=== PATIENT | male | born 1970 | race Caucasian/White ===

== ENCOUNTER 2017-03-17 16:31 | Emergency (ER) | payer BC ==
[~2017-03-17] VITALS: Ht 175.3 cm; Wt 90.9 kg
[2017-03-17 16:34] VITALS: TEMP 36.8; Ht 175.3 cm; Wt 90.9 kg
[2017-03-17] MEDS ORDERED: FOLI1TAB7 PO (16:56)
[2017-03-17] MEDS ORDERED: METH2.5T PO (16:56)
[2017-03-17] MEDS ORDERED: PRED-301 PO (16:58)
[2017-03-17] MEDS ORDERED: PRLSR20 PO (16:58)
[2017-03-17] MEDS ORDERED: SODIUM CHLORIDE 0.9% 1000ML 1,000 ML IV STA (17:04)
[2017-03-17] MEDS ORDERED: MONT1TAB3 PO (17:27)
--- NOTE | 2017-03-17 17:27 | EMERGENCY ROOM VISIT NOTE ---
History First contact with patient: 16:54 Chief Complaint: ILLNESS Stated Complaint: BITE ON ARM, SWELLING, RED/PAINFUL, POSS WC History of Present Illness The patient is a 46 year old male on methotrexate and prednisone for sarcoidosis who presents to the Emergency Room with complaints of pain, erythema and swelling over this right elbow since a bug bite which occurred on Wednesday. He does have hot flushes but this is not unusual for him due to his sarcoid. He also has intermittent chest pains which last for a few minutes while resting however these are not acute and he has odd chest pains such as this due to his sarcoid chronically. Left side of sternum, ache more than a pain, no radiation, no worse on inspiration. no associated diaphoresis, nausea or shortness of breath. Review of Systems See HPI for pertinent positives & negatives. A total of 10 systems reviewed and were otherwise negative. Past Medical/Surgical History Medical Problems: (1) Asthma (2) Chronic GERD (3) Sarcoidosis Surgical Problems: (1) Hernia (2) S/P vasectomy Family History Diabetes HTN Cancer Social History Smoking Status: Never Smoker Smokeless Tobacco Use: Yes Alcohol Use: occasionally Drug Use: none Marital Status: Housing Status: lives with significant other Occupation Status: employed Current/Historical Medications Scheduled Calcium Carbonate-Cholecalcife (Caltrate 600+D), 1 TAB PO DAILY Celecoxib (CeleBREX), 1 CAP PO DAILY Folic Acid (Folvite), 2 MG PO DAILY Methotrexate (Methotrexate), 2.5 MG PO WK Montelukast Sodium (Singulair), 10 MG PO DAILY Omeprazole (Prilosec), 20 MG PO DAILY Prednisone (Prednisone), 2.5 MG PO 2XWK Psyllium (Metamucil), 1 CAP PO DAILY Tiotropium [place] Monohydrate (Spiriva Respimat), 2 PUFFS INH DAILY Allergies Coded Allergies: No Known Allergies (Unverified , 03/19/17) Physical Exam Vital Signs Date Time Temp Pulse Resp B/P (MAP) Pulse Ox O2 Delivery O2 Flow Rate FiO2 03/17/17 21:15 82 18 154/90 97 03/17/17 19:14 78 24 157/95 97 Room Air 03/17/17 18:14 80 18 158/90 98 Room Air 03/17/17 17:44 84 20 150/64 97 Room Air 03/17/17 17:33 83 03/17/17 16:34 36.8 90 18 158/83 97 Room Air Physical Exam VITAL SIGNS: were reviewed as above GENERAL: mild acute distress from pain SKIN: Warm dry and pink, superficial erythema and swelling surrounding scab consistent with a bug bite on right upper arm, no fluctuance of fluid filled cavity, elbow joint non painful on flexion and extension. HEAD: Normocephalic and atraumatic EYES: extraocular muscles intact, pupils equal and reactive to light OROPHARYNX: non erythematous, clear and moist NECK: no adenopathy LUNGS: Regular rate, no accessory muscle use, no respiratory distress, clear to auscultation, no accessory muscle use HEART: Regular rate and rhythm, heart sounds 1+2, no murmurs ABDOMEN: Soft and nontender, bowel sounds normal EXTREMITIES: Warm and well perfused, no calf tenderness/swelling, no pedal edema. NEUROLOGICALLY: Awake alert and oriented without focal deficit. No facial droop. MUSCULOSKELETAL: Good muscle tone. No evidence of trauma Medical Decision & Procedures ER Provider Diagnostic Interpretation: CHEST ONE VIEW PORTABLE CLINICAL HISTORY: Atypical chest pain COMPARISON STUDY: No previous studies for comparison. FINDINGS: The heart is mildly enlarged. There is elevation of the interstitium. This could be secondary to mild cardiogenic interstitial edema, and interstitial inflammatory process, or chronic interstitial lung disease. There is no lobar consolidation. There are no pleural effusions. There is mild elevation left hemidiaphragm.[ IMPRESSION: Cardiomegaly and age-indeterminate elevation of the interstitium. Clinical correlation in regards to congestive failure is recommended. Electronically signed by: Domingo Lauren M.D. 03/17/2017 5:34 PM Dictated Date/Time: 03/17/2017 5:32 PM Laboratory Results 03/17/17 17:45 Red Blood Count 5.28, Mean Corpuscular Volume 92.0, Mean Corpuscular Hemoglobin 31.8, Mean Corpuscular Hemoglobin Concent 34.6, Mean Platelet Volume 9.6, Neutrophils (%) (Auto) 81.4, Lymphocytes (%) (Auto) 7.3, Monocytes (%) (Auto) 9.4, Eosinophils (%) (Auto) 1.1, Basophils (%) (Auto) 0.4, Neutrophils # (Auto) 8.75, Lymphocytes # (Auto) 0.79, Monocytes # (Auto) 1.01, Eosinophils # (Auto) 0.12, Basophils # (Auto) 0.04 03/17/17 17:45 Test 03/17/17 17:45 03/17/17 17:48 03/17/17 19:46 White Blood Count 10.75 K/uL (4.8-10.8) Red Blood Count 5.28 M/uL (4.7-6.1) Hemoglobin 16.8 g/dL (14.0-18.0) Hematocrit 48.6 % (42-52) Mean Corpuscular Volume 92.0 fL (80-100) Mean Corpuscular Hemoglobin 31.8 pg (25-34) Mean Corpuscular Hemoglobin Concent 34.6 g/dl (32-36) Platelet Count 146 K/uL (130-400) Mean Platelet Volume 9.6 fL (7.4-10.4) Neutrophils (%) (Auto) 81.4 % Lymphocytes (%) (Auto) 7.3 % Monocytes (%) (Auto) 9.4 % Eosinophils (%) (Auto) 1.1 % Basophils (%) (Auto) 0.4 % Neutrophils # (Auto) 8.75 K/uL (1.4-6.5) Lymphocytes # (Auto) 0.79 K/uL (1.2-3.4) Monocytes # (Auto) 1.01 K/uL (0.11-0.59) Eosinophils # (Auto) 0.12 K/uL (0-0.5) Basophils # (Auto) 0.04 K/uL (0-0.2) RDW Standard Deviation 45.5 fL (36.4-46.3) RDW Coefficient of Variation 13.5 % (11.5-14.5) Immature Granulocyte % (Auto) 0.4 % Immature Granulocyte # (Auto) 0.04 K/uL (0.00-0.02) Anion Gap 6.0 mmol/L (3-11) Est Creatinine Clear Calc Drug Dose 91.5 ml/min Estimated GFR () 91.5 Estimated GFR (Non- 79.0 BUN/Creatinine Ratio 11.6 (10-20) Calcium Level 8.7 mg/dl (8.5-10.1) Total Bilirubin 0.8 mg/dl (0.2-1) Aspartate Amino Transf (AST/SGOT) 22 U/L (15-37) Alanine Aminotransferase (ALT/SGPT) 57 U/L (12-78) Alkaline Phosphatase 36 U/L (45-117) C-Reactive Protein 2.49 mg/dl (0-0.29) Total Protein 7.3 gm/dl (6.4-8.2) Albumin 4.0 gm/dl (3.4-5.0) Globulin 3.3 gm/dl (2.5-4.0) Albumin/Globulin Ratio 1.2 (0.9-2) Chemistry Specimen Hemolysis Bedside Troponin I < 0.030 ng/ml (0-0.045) Bedside Lactic Acid Venous 1.66 mmol/L (0.90-1.70) Medications Administered Medications (Trade) Dose Ordered Sig/Dejah Route Start Time Stop Time Status Last Admin Dose Admin Sodium Chloride 1,000 ml @ 999 mls/hr Q1H1M STAT IV 03/17/17 17:04 03/17/17 18:04 DC 03/17/17 17:47 999 MLS/HR Ceftriaxone Sodium (Rocephin Inj) 1 gm NOW STAT IV 03/17/17 17:29 03/17/17 17:30 DC 03/17/17 18:14 1 GM ECG Indication: chest pain Rate (beats per minute): 87 Rhythm: normal sinus Findings: no acute ischemic change Comparison ECG Date: no prior available ED Course 16:55 Complete history and physical performed 17:[address] Michael who separately performed history and physical 19:25 Reassessed patient - no chest pain. Discussed option for management and treatment - his main concern is trying to get back to work on Wednesday but he does not wish to be admitted. Therefore elected to get a second lactic acid to make sure it was coming down. 20:20 Reassessed patient and awaiting MTU to be set up so he can be discharged. No chest pain. Medical Decision Prior records reviewed and summarized as above. Triage Nursing notes reviewed. Additional history obtained from the patient The patient's history was concerning for swelling and redness of the skin. Differential diagnosis: Etiologies such as cellulitis, abscess, MRSA infection, DVT, necrotizing fasciitis, dermatitis, drug eruption, as well as others were entertained.. Physical examination: The physical examination was consistent with cellulitis ER treatment provided: Ceftriaxone 1g IV NSS 1L bolus On reassessment the patient felt about the same but was keen to be discharged Diagnostics interpreted by me: The labs revealed mildly elevated neutrophil count but normal WBC, elevated CRP 2.49, initially elevated lactic acid 2.3 which later decreased to 1.66. Imaging studies: CXR - correlation with his symptoms I suspect these are chronic interstitial changes related to his sarcoidosis as his clinical history is not consistent with that of heart failure. US doppler was negative for DVT This appears to be isolated cellulitis however he is immunosuppressed with the methotrexate and prednisone therefore opted for IV antibiotics over the next 2 days and reassess if it is improving and switch to orals if blood cultures are negative. By the evaluation outlined above emergent etiologies such as abscess, necrotizing fasciitis, DVT, as well as others were deemed relatively unlikely. The patient was informed about the findings as listed above. All questions were answered and he pleased with the treatment and management plan. Return instructions were outlined and the patient was discharged in stable condition. Blood pressure screening: elevated in the ER, likely situational. Discussed with patient and he will follow up with his primary care physician regarding this. Outpatient prescription management: Medical treatment unit - ceftriaxone 1g IV daily for 2 days starting 03/18/2017 Referral: The patient was referred back to his primary care physician for follow-up in 4 to 5 days for a recheck of the current condition and a recheck of his blood pressure. Impression Primary Impression: Cellulitis of arm, right Additional Impression: Immunosuppressed status Departure Information Dispostion Home / Self-Care Condition FAIR Referrals Gurinder Martin (PCP) Patient Instructions [facility] Additional Instructions CELLULITIS INSTRUCTIONS: You have been set up for the medical treatment unit to receive two further doses of IV antibiotics. Further treatment to be determined following this depending on clinical course and blood culture results. Acetaminophen(Tylenol) may be used for fever or pain. Use 1000mg every eight hours as needed. Avoid using more than 3000mg in a 24 hour period. This is available over the counter. Read all the package inserts or medication information paperwork provided. If you have any questions or concerns call your primary provider, pharmacist or the ER for assistance. Rest and drink plenty of fluids. Continue current medications. Return to the ER for severe pain, persistent fevers, spreading redness, or any worsening of your condition. Follow up with your primary physician within 4-5 days for a recheck of the current condition. Work Instructions Specific Date: 03/22/2017 Resident Tracking Resident Involvement: Resident Care Provided Care Provided: Adult ED Problem Qualifiers
[2017-03-17] MEDS ORDERED: CLB/200 PO (17:28)
[2017-03-17] MEDS ORDERED: PSYL0.524 PO (17:28)
[2017-03-17] MEDS ORDERED: CEFTRIAXONE SOD INJ 1 GM ADDVIAL IV STA (17:29)
[2017-03-17] MEDS ORDERED: CALC-354 PO (17:31)
--- NOTE | 2017-03-17 17:35 | DIAGNOSTIC IMAGING REPORT ---
CHEST ONE VIEW PORTABLE CLINICAL HISTORY: Atypical chest pain COMPARISON STUDY: No previous studies for comparison. FINDINGS: The heart is mildly enlarged. There is elevation of the interstitium. This could be secondary to mild cardiogenic interstitial edema, and interstitial inflammatory process, or chronic interstitial lung disease. There is no lobar consolidation. There are no pleural effusions. There is mild elevation left hemidiaphragm.[ IMPRESSION: Cardiomegaly and age-indeterminate elevation of the interstitium. Clinical correlation in regards to congestive failure is recommended. Electronically signed by: Domingo Lauren M.D. 03/17/2017 5:34 PM Dictated Date/Time: 03/17/2017 5:32 PM
[2017-03-17] MEDS ORDERED: TIOT1AER2 INH (17:37)
[2017-03-17 18:01] LABS: BASO % 0.4 %; BASO ABS # 0.04 K/uL (0-0.2); COMPLETE YES; EOS % 1.1 %; HEMATOCRIT 48.6 % (42-52); IG% 0.4 %; LYMPH % 7.3 %; LYMPH ABS # 0.79 K/uL (1.2-3.4); MEAN CORPUSCULAR HEMOGLOBIN 31.8 pg (25-34); MEAN CORPUSCULAR HGB CONC 34.6 g/dl (32-36); MEAN PLATELET VOLUME 9.6 fL (7.4-10.4); MONO % 9.4 %; NEUT % 81.4 %; PLATELET COUNT 146 K/uL (130-400); RED BLOOD COUNT 5.28 M/uL (4.7-6.1); WHITE BLOOD COUNT 10.75 K/uL (4.8-10.8)
--- NOTE | 2017-03-17 18:01 | EMERGENCY ROOM VISIT NOTE ---
ED Visit Note First contact with patient: 16:55 Resident Physician Supervision Note: I was present with Dr. Walton during the history and exam. I discussed the case with the resident and agree with the findings and plan as documented in the note. Documented By: Oleg Michael
[2017-03-17 18:21] LABS: BUN/CREATININE RATIO 11.6 (10-20); CALCIUM 8.7 mg/dl (8.5-10.1); CREATININE 1.1 mg/dl (0.60-1.40); POTASSIUM 4.4 mmol/L (3.5-5.1)
[2017-03-17 18:22] LABS: ALB/GLOB RATIO 1.2 (0.9-2); C-REACTIVE PROTEIN 2.49 mg/dl (0-0.29)
--- NOTE | 2017-03-17 19:04 | DIAGNOSTIC IMAGING REPORT ---
ULTRASOUND LEFT VENOUS DOPP LOWER EXT UNILAT CLINICAL HISTORY: left calf and thigh pain COMPARISON STUDY: No previous studies for comparison. FINDINGS: Real-time and color flow Doppler imaging were performed. Flow was seen within the femoral, popliteal and calf veins with no intraluminal thrombus demonstrated. The saphenous vein is patent. IMPRESSION: No evidence of left lower extremity DVT. Electronically signed by: Domingo Lauren M.D. 03/17/2017 7:02 PM Dictated Date/Time: 03/17/2017 7:01 PM
[2017-03-17 21:15] VITALS: BP 154/90; PULSE 82; O2SAT 97
== END 2017-03-17 21:15 | disposition home or self-care (01) ==
LOC: C.EDB 16:32 → C.EDC 21:15
DX: L03.111 Cellulitis of right axilla (principal); D89.9 Disorder involving the immune mechanism, unspecified; Z79.899 Other long term (current) drug therapy

== ENCOUNTER 2017-10-04 14:53 | Emergency (ER) | payer BC, OTHER ==
[~2017-10-04] VITALS: Ht 175.3 cm; Wt 89.6 kg
[~2017-10-04 14:53] MED LIST: CALC-354 PO; CLB/200 PO; FOLI1TAB8 PO; METH2.5T PO; MONT1TAB3 PO; PRED-301 PO; PRLSR20 PO; PSYL0.524 PO; TIOT1AER2 INH
[2017-10-04 15:00] VITALS: Ht 175.3 cm; Wt 89.6 kg
[2017-10-04] MEDS ORDERED: SODIUM CHLORIDE 0.9% 1000ML 1,000 ML IV STA (15:21)
[2017-10-04] MEDS ORDERED: OPTIRAY 320 IV PRN (15:45)
[2017-10-04 16:27] LABS: BASO % 0.3 %; BASO ABS # 0.03 K/uL (0-0.2); EOS % 2.5 %; EOS ABS # 0.23 K/uL (0-0.5); HEMATOCRIT 46.5 % (42-52); HEMOGLOBIN 16.7 g/dL (14.0-18.0); IG# 0.04 K/uL (0.00-0.02); LYMPH % 7.1 %; LYMPH ABS # 0.66 K/uL (1.2-3.4); MEAN CELL VOLUME 90.5 fL (80-100); MEAN CORPUSCULAR HEMOGLOBIN 32.5 pg (25-34); MEAN CORPUSCULAR HGB CONC 35.9 g/dl (32-36); MEAN PLATELET VOLUME 9.5 fL (7.4-10.4); MONO % 9.5 %; MONO ABS # 0.89 K/uL (0.11-0.59); NEUT % 80.2 %; PLATELET COUNT 126 K/uL (130-400); RED CELL DISTRIBUTION WIDTH CV 13.6 % (11.5-14.5); RED CELL DISTRIBUTION WIDTH SD 44.4 fL (36.4-46.3); WHITE BLOOD COUNT 9.35 K/uL (4.8-10.8)
[2017-10-04 16:44] VITALS: TEMP 37.1
[2017-10-04] MEDS ORDERED: ONDANSETRON INJ 2 MG/ML 2 ML VIAL IV STA (16:44)
[2017-10-04] MEDS ORDERED: MoRPHine SULFATE 4 MG/ML 1 ML CARP\\VIAL IV STA (16:44)
[2017-10-04] MEDS ORDERED: MoRPHine SULFATE 4 MG/ML 1 ML CARP\\VIAL IV PRN (16:45)
[2017-10-04 16:48] LABS: CALCIUM 8.9 mg/dl (8.5-10.1); CREATININE 1.12 mg/dl (0.60-1.40); POTASSIUM 3.5 mmol/L (3.5-5.1); URIC ACID 6.8 mg/dl (2.6-7.2)
[2017-10-04 16:57] LABS: TOTAL PROTEIN 7.8 gm/dl (6.4-8.2)
--- NOTE | 2017-10-04 18:35 | DIAGNOSTIC IMAGING REPORT ---
CT OF THE ABDOMEN AND PELVIS WITH CONTRAST CLINICAL HISTORY: Left lower quadrant abdominal pain. COMPARISON STUDY: None. TECHNIQUE: Following IV administration of 115 mL of Optiray-320, axial images of the abdomen and pelvis were obtained from the lung bases to the proximal femurs. Images were reviewed in the axial, sagittal, and coronal planes. IV contrast was administered without complication. A dose lowering technique was utilized adhering to the principles of ALARA. Oral contrast was administered. CT DOSE: 580.85 mGy.cm FINDINGS: Visualized portions of the lower chest demonstrate mild cardiomegaly and a trace left pleural effusion. Note is made of numerous calcified mediastinal and bilateral hilar lymph nodes. There are innumerable small nodules throughout visualized portions of the lower lungs, the largest of which is a 7 mm left lower lobe nodule shown image 13 of 506. A mildly enlarged lymph node along the left lateral aspect of the distal descending thoracic aorta measures 1.3 cm. There are prominent cardiophrenic angle lymph nodes. Mild to moderate splenomegaly is noted. The liver, adrenal glands, kidneys and pancreas are unremarkable. A splenule is present. There is a mildly enlarged portacaval lymph node that measures 1.3 cm in short axis diameter. There are prominent peripancreatic lymph nodes. There is no evidence for a bowel obstruction. There is sigmoid diverticulosis with focal moderate wall thickening of the proximal sigmoid colon with an inflamed diverticulum. There is moderate inflammation. There is no free air or abscess. No suspicious osseous lesions are present. There is no pelvic lymphadenopathy. The appendix is normal. IMPRESSION: 1. Acute sigmoid diverticulitis. No free air or abscess. Moderate wall thickening and pericolonic infiltration. 2. Evidence for a granulomatous process within visualized portions of the lower chest, including calcified mediastinal and bilateral hilar lymph nodes as well as innumerable nodules in a perilymphatic distribution within visualized portions of the lower lungs. Differential considerations include sarcoidosis and silicosis. Trace left pleural effusion. 3. Mild lower thoracic and upper abdominal lymphadenopathy with mild to moderate splenomegaly. This may be related to the granulomatous process however a lymphoproliferative process could appear similar. A follow-up chest CT in 3 months is recommended. Electronically signed by: Leon Casanova M.D. 10/04/2017 6:33 PM Dictated Date/Time: 10/04/2017 6:21 PM
--- NOTE | 2017-10-04 18:50 | EMERGENCY ROOM VISIT NOTE ---
ED Visit Note First contact with patient: 15:04 The patient was seen and examined with Everton Goncalves PA-C. I agree with the history, physical and findings. Please see the note for disposition and details.
[2017-10-04] MEDS ORDERED: MoRPHine SULFATE 10 MG/ML CARP/VIAL IV STA (19:03)
[2017-10-04] MEDS ORDERED: OXYC1TAB3 PO (19:06)
[2017-10-04] MEDS ORDERED: AMOX875T PO (19:06)
[2017-10-04] MEDS ORDERED: AMOXICILLIN/CLAVULANATE TAB 875 MG TAB PO ONE (19:15)
[2017-10-04 19:24] VITALS: BP 143/91; PULSE 101; O2SAT 97
--- NOTE | 2017-10-04 20:21 | EMERGENCY ROOM VISIT NOTE ---
History First contact with patient: 15:04 Chief Complaint: ABDOMINAL PAIN Stated Complaint: SEVERE ABDOMINAL PAIN, REFERRED BY URGENT CARE MD Nursing Triage Summary: Patient reports that he has had left lower quadrant abdominal pain for 5 days. Patient was sent here to the ER for a CT scan to roll out diverticulitis. Patient has had a decreased appetite due to the pain and nausea. Patient reports possibly bloody stools. History of Present Illness The patient is a 47 year old male , history of sarcoidosis, who presents to the Emergency Room with complaints of severe left lower quadrant abdominal pain. The patient reports that his pain started 5 days ago. The patient reports that the pain is worsened when sitting and laying on his back. It does not seem to worsen with ambulation. The pain does not radiate into the buttock or leg. He denies any difficulty urinating him a diarrhea, hematochezia or mucus in the stool. The patient denies any recent injury to the back or abdomen. The patient does report having a colonoscopy many years ago that showed diverticulosis. The patient has never had any prior history of diverticulitis. He was seen at [facility] this afternoon and sent to the emergency department for a CT scan to rule out diverticulitis. The patient reports that he did feel feverish last night but did not check his temperature. He denies any significant nausea, and currently rates his discomfort a 7 out of 10. The patient reports that he was suppose to have additional lab work and x-rays performed today as part of workup from his environmental field team member, Dr. Maher in [place] , and wanted to know if those labs could also be ordered today. Review of Systems HEENT: Denies dizziness, visual problems, hearing loss, tinnitus. Denies difficulty swallowing or oral lesions. PULMONARY: Denies cough, shortness of breath, sputum production or hemoptysis. CARDIOVASCULAR: Denies chest pain, palpitations, dyspnea on exertion, orthopnea or peripheral edema. GASTROINTESTINAL: Denies diarrhea, constipation, nausea or vomiting, otherwise see history of present illness. GENITOURINARY: Denies dysuria, frequency, urgency or nocturia. NEUROLOGIC: Denies history of epilepsy, CVA, TIA or chronic headaches. MUSCULOSKELETAL: Denies history of joint tenderness/swelling. SKIN: Denies rashes or lesions. PSYCHIATRIC: Denies history of depression or mental illness. ENDOCRINE: Denies history of diabetes or thyroid disorders. Past Medical/Surgical History Medical Problems: (1) Asthma (2) Chronic GERD (3) Sarcoidosis Surgical Problems: (1) Hernia (2) S/P vasectomy Family History Unremarkable Social History Smoking Status: Never Smoker Alcohol Use: none Marital Status: Housing Status: lives with family Occupation Status: employed Current/Historical Medications Scheduled Amoxicillin & Pot Clavulanate (Augmentin 875-125 mg), 1 TAB PO BID Calcium Carbonate-Cholecalcife (Caltrate 600+D), 1 TAB PO DAILY Celecoxib (CeleBREX), 1 CAP PO DAILY Folic Acid (Folvite), 2 MG PO DAILY Methotrexate (Methotrexate), 2.5 MG PO WK Montelukast Sodium (Singulair), 10 MG PO DAILY Psyllium (Metamucil), 1 CAP PO DAILY Tiotropium [place] (Spiriva Respimat), 2 PUFFS INH DAILY Scheduled PRN Oxycodone Ir (Roxicodone Ir), 1-2 TAB PO Q4H PRN for Pain Physical Exam Vital Signs Date Time Temp Pulse Resp B/P (MAP) Pulse Ox O2 Delivery O2 Flow Rate FiO2 10/04/17 19:24 101 18 143/91 97 10/04/17 16:44 37.1 84 18 158/92 97 Room Air 10/04/17 15:00 36.9 97 20 158/90 97 Room Air Physical Exam CONSTITUTIONAL: Healthy and well nourished. Alert and oriented X 3 with positive affect. Patient appears in mild to moderate discomfort. He does not appear acutely ill or toxic. HEENT: Normocephalic, atraumatic. Pupils equal, round and reactive. No sclerae icterus or conjunctival injection/pallor. NECK: Full active range of motion without discomfort. RESPIRATORY: Clear to auscultation bilaterally with no wheezing, crackles, rhonchi or stridor. CARDIOVASCULAR: Regular rate and rhythm with no murmurs, rubs or gallops. GASTROINTESTINAL: Bowel sounds present in all quadrants. Patient has notable left lower quadrant tenderness to palpation without rigidity, guarding or rebound. MUSCULOSKELETAL: Full range of motion of all joints without discomfort. Negative logroll, and no pain with flexion of the left hip. INTEGUMENTARY: No rash or other significant dermatologic conditions noted. Line HEMATOLOGIC: No ecchymosis or petechiae noted. NEUROLOGIC: No focal neurologic deficits noted. Medical Decision & Procedures ER Provider Diagnostic Interpretation: Enhanced CT of the abdomen and pelvis shows evidence for an acute diverticulitis without abscess formation or perforation. Additional CT findings are as described in the following report: CT OF THE ABDOMEN AND PELVIS WITH CONTRAST CLINICAL HISTORY: Left lower quadrant abdominal pain. COMPARISON STUDY: None. TECHNIQUE: Following IV administration of 115 mL of Optiray-320, axial images of the abdomen and pelvis were obtained from the lung bases to the proximal femurs. Images were reviewed in the axial, sagittal, and coronal planes. IV contrast was administered without complication. A dose lowering technique was utilized adhering to the principles of ALARA. Oral contrast was administered. CT DOSE: 580.85 mGy.cm FINDINGS: Visualized portions of the lower chest demonstrate mild cardiomegaly and a trace left pleural effusion. Note is made of numerous calcified mediastinal and bilateral hilar lymph nodes. There are innumerable small nodules throughout visualized portions of the lower lungs, the largest of which is a 7 mm left lower lobe nodule shown image 13 of [phone]. A mildly enlarged lymph node along the left lateral aspect of the distal descending thoracic aorta measures 1.3 cm. There are prominent cardiophrenic angle lymph nodes. Mild to moderate splenomegaly is noted. The liver, adrenal glands, kidneys and pancreas are unremarkable. A splenule is present. There is a mildly enlarged portacaval lymph node that measures 1.3 cm in short axis diameter. There are prominent peripancreatic lymph nodes. There is no evidence for a bowel obstruction. There is sigmoid diverticulosis with focal moderate wall thickening of the proximal sigmoid colon with an inflamed diverticulum. There is moderate inflammation. There is no free air or abscess. No suspicious osseous lesions are present. There is no pelvic lymphadenopathy. The appendix is normal. IMPRESSION: 1. Acute sigmoid diverticulitis. No free air or abscess. Moderate wall thickening and pericolonic infiltration. 2. Evidence for a granulomatous process within visualized portions of the lower chest, including calcified mediastinal and bilateral hilar lymph nodes as well as innumerable nodules in a perilymphatic distribution within visualized portions of the lower lungs. Differential considerations include sarcoidosis and silicosis. Trace left pleural effusion. 3. Mild lower thoracic and upper abdominal lymphadenopathy with mild to moderate splenomegaly. This may be related to the granulomatous process however a lymphoproliferative process could appear similar. A follow-up chest CT in 3 months is recommended. Laboratory Results 10/04/17 15:48 Red Blood Count 5.14, Mean Corpuscular Volume 90.5, Mean Corpuscular Hemoglobin 32.5, Mean Corpuscular Hemoglobin Concent 35.9, Mean Platelet Volume 9.5, Neutrophils (%) (Auto) 80.2, Lymphocytes (%) (Auto) 7.1, Monocytes (%) (Auto) 9.5, Eosinophils (%) (Auto) 2.5, Basophils (%) (Auto) 0.3, Neutrophils # (Auto) 7.50, Lymphocytes # (Auto) 0.66, Monocytes # (Auto) 0.89, Eosinophils # (Auto) 0.23, Basophils # (Auto) 0.03 10/04/17 15:48 Test 10/04/17 15:34 10/04/17 15:45 10/04/17 15:48 Urine Color YELLOW Urine Appearance CLEAR (CLEAR) Urine pH 5.0 (4.5-7.5) Urine Specific [place] 1.023 (1.000-1.030) Urine Protein NEG (NEG) Urine Glucose (UA) NEG (NEG) Urine Ketones NEG (NEG) Urine Occult Blood NEG (NEG) Urine Nitrite NEG (NEG) Urine Bilirubin NEG (NEG) Urine Urobilinogen NEG (NEG) Urine Leukocyte Esterase NEG (NEG) Cyclic Citrullinated Peptide IgG Ab < 0.40 U/mL (0-4.99) White Blood Count 9.35 K/uL (4.8-10.8) Red Blood Count 5.14 M/uL (4.7-6.1) Hemoglobin 16.7 g/dL (14.0-18.0) Hematocrit 46.5 % (42-52) Mean Corpuscular Volume 90.5 fL (80-100) Mean Corpuscular Hemoglobin 32.5 pg (25-34) Mean Corpuscular Hemoglobin Concent 35.9 g/dl (32-36) Platelet Count 126 K/uL (130-400) Mean Platelet Volume 9.5 fL (7.4-10.4) Neutrophils (%) (Auto) 80.2 % Lymphocytes (%) (Auto) 7.1 % Monocytes (%) (Auto) 9.5 % Eosinophils (%) (Auto) 2.5 % Basophils (%) (Auto) 0.3 % Neutrophils # (Auto) 7.50 K/uL (1.4-6.5) Lymphocytes # (Auto) 0.66 K/uL (1.2-3.4) Monocytes # (Auto) 0.89 K/uL (0.11-0.59) Eosinophils # (Auto) 0.23 K/uL (0-0.5) Basophils # (Auto) 0.03 K/uL (0-0.2) RDW Standard Deviation 44.4 fL (36.4-46.3) RDW Coefficient of Variation 13.6 % (11.5-14.5) Immature Granulocyte % (Auto) 0.4 % Immature Granulocyte # (Auto) 0.04 K/uL (0.00-0.02) Erythrocyte Sedimentation Rate 13 mm/hr (0-14) Anion Gap 7.0 mmol/L (3-11) Est Creatinine Clear Calc Drug Dose 88.3 ml/min Estimated GFR () 88.9 Estimated GFR (Non- 76.7 BUN/Creatinine Ratio 13.9 (10-20) Uric Acid 6.8 mg/dl (2.6-7.2) Calcium Level 8.9 mg/dl (8.5-10.1) Phosphorus Level 3.0 mg/dl (2.5-4.9) Magnesium Level 2.3 mg/dl (1.8-2.4) Ferritin 410.9 ng/ml (8.0-388.0) Total Bilirubin 0.9 mg/dl (0.2-1) Direct Bilirubin 0.2 mg/dl (0-0.2) Aspartate Amino Transf (AST/SGOT) 18 U/L (15-37) Alanine Aminotransferase (ALT/SGPT) 62 U/L (12-78) Alkaline Phosphatase 39 U/L (45-117) C-Reactive Protein 5.34 mg/dl (0-0.29) Total Protein 7.8 gm/dl (6.4-8.2) Albumin 4.0 gm/dl (3.4-5.0) Lipase 119 U/L (73-393) Vitamin B12 Level 398 pg/mL (211-911) 25-Hydroxy Vitamin D Total 20.7 ng/ml (30-100) Thyroid Stimulating Hormone (TSH) 1.840 uIu/ml (0.300-4.500) The above labs were reviewed. The patient has no leukocytosis. Remaining labs were otherwise reviewed. Medications Administered Medications (Trade) Dose Ordered Sig/Dejah Route Start Time Stop Time Status Last Admin Dose Admin Sodium Chloride 1,000 ml @ 999 mls/hr Q1H1M STAT IV 10/04/17 15:21 10/04/17 16:21 DC 10/04/17 15:21 999 MLS/HR Morphine Sulfate (MoRPHine SULFATE INJ) 4 mg NOW STAT IV 10/04/17 16:44 10/04/17 16:48 DC 10/04/17 16:54 4 MG Ondansetron HCl (Zofran Inj) 4 mg NOW STAT IV 10/04/17 16:44 10/04/17 16:48 DC 10/04/17 16:53 4 MG Amoxicillin/ Clavulanate Potassium (Augmentin Tab) 875 mg ONE ONCE PO 10/04/17 19:15 10/04/17 19:16 DC 10/04/17 19:16 875 MG Morphine Sulfate (MoRPHine SULFATE INJ) 8 mg NOW STAT IV 10/04/17 19:03 10/04/17 19:05 DC 10/04/17 19:16 8 MG Procedure 1. IV hydration: The patient was administered normal saline 1 L bolus 2. IV medications: The patient was initially administered morphine 4 mg and Zofran 4 mg IVP ED Course Patient history and physical exam were performed. Nurse's notes were reviewed. Vital signs were reviewed. The patient is afebrile. He is hypertensive with a blood pressure of 158/90. Pulse rate is also normal. IV access was established, and labs were drawn, including outpatient labs that the patient brought with him. The lab that was not completed was a tuberculin skin test, and was advised that he would need to have this performed through his preferred lab. The patient also had multiple joint x-rays ordered that were also deferred today for future outpatient studies. The patient initially refused any analgesics, but shortly after I left the room, he changes his mind. The patient was administered IV morphine and Zofran for pain. Review of labs shows no leukocytosis. Remaining labs were otherwise reviewed and grossly normal. I will defer further laboratory interpretation to the patient's PCP and environmental field team member. Enhanced CT of the abdomen and pelvis shows evidence for an acute diverticulitis without evidence for abscess formation or perforation. The case was also discussed with Dr. Richardson, ED attending physician who also evaluated the patient. The patient admits that he drinks a lot of alcohol to help with chest discomfort secondary to sarcoidosis. We elected to cover the patient with Augmentin antibiotics, with the patient receiving his first dose prior to discharge. The patient was given additional morphine 8 mg IVP prior to discharge, and prescription for OxyIR 5 mg. The patient was instructed to follow-up closely with his PCP or environmental field team member within the next 24 -48 hours. He was instructed to return for any significant worsening pain, vomiting, developing fever or other concerning symptoms. The patient was happy with plan of care, voiced understanding of all discharge instructions, and rated his discomfort a 5 out of 10 at the conclusion of my exam, and prior to IV morphine administration. Medical Decision Patient presents to emergency Department with primary complaint of left lower quadrant abdominal pain for the past [address] scan is consistent with acute diverticulitis without abscess formation or perforation. The patient is currently afebrile and has no leukocytosis. The patient felt well enough to be discharged. The patient does not have any peritoneal signs on exam. Urinalysis is not consistent with UTI, and there is no hematuria to suggest a ureteral calculus. No obstruction is noted on CT scan. [facility] Drug Monitoring Program Search Results: patient reviewed within database, no issues identified Medication Reconcilliation Current Medication List: was personally reviewed by me Blood Pressure Screening Patient's blood pressure: Elevated blood pressure Blood pressure disposition: Elevated BP felt to be situational Impression Primary Impression: Diverticulitis Departure Information Prescriptions Amoxicillin & Pot Clavulanate (Augmentin 875-125 mg) 1 Tab Tab 1 TAB PO BID for 10 Days, #20 TAB Prov: Everton Sebastian PA 10/04/17 Oxycodone Ir (Roxicodone Ir) 5 Mg Tab 1-2 TAB PO Q4H Y for Pain, #15 TAB For Initial Treatment Prov: Everton Sebastian PA 10/04/17 Referrals No Doctor, Assigned (PCP) [facility] Instructions [facility]
== END 2017-10-04 19:27 | disposition home or self-care (01) ==
LOC: C.EDB 14:54 → C.EDC 19:27
DX: K57.92 Diverticulitis of intestine, part unspecified, without perforation or abscess without bleeding (principal); J45.909 Unspecified asthma, uncomplicated; K21.9 Gastro-esophageal reflux disease without esophagitis; D86.9 Sarcoidosis, unspecified; Z79.899 Other long term (current) drug therapy

== ENCOUNTER 2020-09-26 02:36 | Inpatient (IN) ==
[2020-09-26] MEDS ORDERED: DEXAMETHASONE SOD INJ 10 MG/ML VIAL ONE (03:09)
[2020-09-26] MEDS ORDERED: DEXAMETHASONE SOD INJ 10 MG/ML VIAL IV ONE (03:18)
--- NOTE | 2020-09-26 03:46 | Emergency Department Note ---
Impression & Plan Hypoxia, Pneumonia due to 2019 novel coronavirus, Sarcoidosis ED Provider Note NAME: KIKE SANCHEZ AGE: 50 SEX: M ARRIVES VIA: Ambulance INFORMANT: [Patient] EMS ED PROVIDER(S): Jessica Tamayo DO CHIEF COMPLAINT: Shortness of breath PLAN: Disposition: Admitted Condition: Guarded MEDICAL DECISION MAKING: This is a 50-year-old male patient with history of sarcoidosis who presents to the emergency department with worsening shortness of breath and a history of recently testing positive for COVID-19. The patient developed hemoptysis this evening and increasing weakness which prompted him to call 911. Upon EMS arrival, the patient's O2 saturations were 76% on room air. The patient is af ebrile on presentation to the emergency department and has no significant leukocytosis. Lactate is normal. However, chest x-ray shows bilateral multifocal patchy opacities concerning for Covid pneumonia. The patient's history of sarcoidosis, I am concerned the patient is at risk for respiratory f ailure. He was given IV Decadron and will be watched closely. I discussed the case with the [facility] hospitalist and they will evaluate for further management. Triage Nursing notes reviewed and agree them. [Additional history obtained from] EMS [Prior medical records reviewed] Vital Signs: reviewed and remarkable for hypoxia and hypertension Differential diagnosis: Respiratory failure; Covid pneumonia; congestive heart failure; exacerbation of sarcoid ER treatment provided: IV Decadron Diagnostics interpreted by me: ECG: Normal sinus rhythm at a rate of 84 ST segment depression in the inferior leads with no obvious ectopy Cardiac Monitoring: Normal sinus rhythm at a rate of 84 Laboratory studies: [See below] Imaging studies: As per my interpretation Portable chest x-ray bilateral patchy multifocal opacities concerning for Covid pneumonia HPI: 50/M arrives for evaluation of shortness of breath and weakness. The patient has a history of sarcoidosis and recently tested positive for COVID-19. The patient believes that he contracted this from his son. The patient developed increasing generalized weakness over the past 48 hours and dramatically worsened shortness of breath and hemoptysis today. The patient's went on to give me history that the patient actually tested positive for COVID-19 1 week ago and has had worsening shortness of breath for at least 5 days. ROS: See above HPI for pertinent positives & negatives. A total of [10] systems reviewed and were otherwise negative. PAST MEDICAL HISTORY:Sarcoidosis PAST SURGICAL HISTORY:[See Below] FAMILY HISTORY:[See Below] SOCIAL HISTORY:The patient lives with his family and works at [employer] in [employer] HOME MEDICATIONS:Vitamin D ALLERGIES:None VITALS:[See Below] PHYSICAL EXAMINATION: HEENT: Head - normocephalic and atraumatic Pupils are equal, round, and reactive to light. Extraocular eye muscles are intact, and sclera are anicteric. Nose - moist nasal mucosa without discharge. Mouth - moist buccal mucosa. Oropharynx is nonerythematous and there is no tonsillar exudate or edema noted. Neck: Supple; no JVD, nuchal rigidity, cervical lymphadenopathy, or auscultated bruits. Heart: Regular rate and rhythm. There is a normal S1 and S2 with no murmurs, clicks, or gallops appreciated. Lungs: Diminished breath sounds in all lung rosario; rhonchi throughout Abdomen: Soft, completely nontender, nondistended, with good bowel sounds. There are no palpable pulsatile masses or hepatosplenomegaly. There is no guarding, rigidity, or rebound noted. Extremities: No evidence of cyanosis, clubbing, or edema. There are easily palpable peripheral pulses. Skin: warm and dry with good turgor and no rashes. ED COURSE: Times/Reassessments: 0250: Patient was evaluated in room C10. A complete history and physical was performed. A septic protocol was performed. An order was placed for continuous cardiac monitoring. The patient was in a normal sinus rhythm at a rate of 84. I donned complete PPE as the patient was known Covid positive 0330: I contacted the patient's to update her on the situation. Answered her questions. 0420: I reevaluated the patient at this time. He was sleeping. I woke him. His O2 saturations were stable on supplemental oxygen. When he started to speak to me, his O2 saturations would drop and he was dyspneic with just a couple of words. I reviewed the results of his laboratory studies and chest x-ray. 0425: I had an extensive conversation with the patient's and kept her abreast of the situation. She did explain to me that the patient actually had tested positive 1-week ago and he may have been struggling with his breathing for much longer than what he had described to me. I will discussed the case with the [facility] hospitalist and they will evaluate for further management. I have personally spent greater than 70 minutes of critical care time in the direct management of this patient. This includes bedside care, interpretation of diagnostic studies, and testing, discussion with consultants, patient, and family members, and other required patient management activities. This 70 minutes is in excess of all separately billable procedures. Jessica Taamyo DO Past Med/Surg History Medical History (Updated 09/26/20 @ 04:37 by Jessica Tamayo DO) Asthma doesnt use inhalers Chronic back pain Chronic GERD Diverticulitis Fibromyalgia Osteoarthritis Sarcoidosis Sleep apnea CPAP--doesnt use as ordered Tinnitus of both ears Surgical History History of bronchoscopy x2 History of colonoscopy History of umbilical hernia repair History of wisdom tooth extraction Hx of vasectomy Family History Other No family history of adverse response to anesthesia Social History Smoking Status: Former smoker Second Hand Exposure: No; Hx Alcohol Use: Yes Alcohol type: beer Hx Substance Use: No Preferred Language: Croatian Communication Ability: Effective Refrigeration Technician Required: No Beliefs That Will Affect Care: None Current Living Situation: Spouse and Family Current Living Situation Comment: Lives with and son Feels Safe at Home: Yes Assistive Devices: Denture - Upper and Denture - Lower Allergies Allergies Allergy/AdvReac Type Severity Reaction Status Date / Time No Known Allergies Allergy Verified 09/26/20 04:09 Home Meds Home Medications Medication Instructions Recorded Confirmed ergocalciferol (vitamin D2) 50,000 unit PO WK 03/06/20 09/26/20 [Vitamin D2] cholecalciferol (vitamin D3) 50 mcg PO DAILY 09/26/20 09/26/20 [Vitamin D3] Results & Data (ED) Vital Signs Vital Signs - 24 hr 09/26/20 03:00 09/26/20 03:11 09/26/20 03:18 Temperature 36.9 C Temperature Source Oral Pulse Rate 85 82 Pulse Rate [Left Apical] 83 Pulse Rate from SpO2 Sensor Respiratory Rate 30 H 26 H Respiratory Effort / Characteristics Short of Breath Spontaneous Labored Short of Breath Spontaneous Short of Breath Respiratory Depth Shallow Respiratory Pattern Tachypnea Tachypnea Tachypnea Blood Pressure 160/85 H Blood Pressure [Right Arm] 164/90 H Blood Pressure Mean 110 Blood Pressure Mean [Right Arm] 114 Blood Pressure Position Sitting Blood Pressure Position [Right Arm] Lying Pulse Oximetry 92 92 Oxygen Delivery Method Nasal Cannula Nasal Cannula Nasal Cannula Oxygen Flow Rate 6 6 6 Sepsis Recent Fever Within 48 Hours No Sepsis New/Unexplained Change in Mental Status N/A Sepsis Action Taken by Nursing No Action Required 09/26/20 03:33 09/26/20 03:48 09/26/20 04:03 Temperature Temperature Source Pulse Rate Pulse Rate [Left Apical] 80 Pulse Rate from SpO2 Sensor Respiratory Rate 26 H Respiratory Effort / Characteristics Labored Short of Breath Labored Short of Breath Labored Short of Breath Respiratory Depth Shallow Respiratory Pattern Tachypnea Tachypnea Blood Pressure Blood Pressure [Right Arm] 156/87 H Blood Pressure Mean Blood Pressure Mean [Right Arm] 110 Blood Pressure Position Blood Pressure Position [Right Arm] Lying Pulse Oximetry 92 Oxygen Delivery Method Nasal Cannula Nasal Cannula Nasal Cannula Oxygen Flow Rate 6 6 6 Sepsis Recent Fever Within 48 Hours Sepsis New/Unexplained Change in Mental Status Sepsis Action Taken by Nursing 09/26/20 04:15 09/26/20 04:16 09/26/20 04:18 Temperature Temperature Source Pulse Rate 78 82 Pulse Rate [Left Apical] Pulse Rate from SpO2 Sensor 78 82 Respiratory Rate 26 H 24 Respiratory Effort / Characteristics Labored Short of Breath Respiratory Depth Respiratory Pattern Blood Pressure 156/88 H Blood Pressure [Right Arm] Blood Pressure Mean 114 Blood Pressure Mean [Right Arm] Blood Pressure Position Blood Pressure Position [Right Arm] Pulse Oximetry 90 89 L 90 Oxygen Delivery Method Nasal Cannula Nasal Cannula Nasal Cannula Oxygen Flow Rate 6 6 6 Sepsis Recent Fever Within 48 Hours Sepsis New/Unexplained Change in Mental Status Sepsis Action Taken by Nursing 09/26/20 04:30 09/26/20 04:34 09/26/20 04:36 Temperature Temperature Source Pulse Rate 91 H 85 Pulse Rate [Left Apical] Pulse Rate from SpO2 Sensor 90 84 Respiratory Rate 23 35 H 32 H Respiratory Effort / Characteristics Labored Short of Breath Respiratory Depth Respiratory Pattern Blood Pressure 162/84 H Blood Pressure [Right Arm] Blood Pressure Mean 116 Blood Pressure Mean [Right Arm] Blood Pressure Position Blood Pressure Position [Right Arm] Pulse Oximetry 91 88 L 92 Oxygen Delivery Method Nasal Cannula Nasal Cannula Nasal Cannula Oxygen Flow Rate 6 6 6 Sepsis Recent Fever Within 48 Hours Sepsis New/Unexplained Change in Mental Status Sepsis Action Taken by Nursing 09/26/20 04:45 09/26/20 04:46 Temperature Temperature Source Pulse Rate 79 78 Pulse Rate [Left Apical] Pulse Rate from SpO2 Sensor 79 78 Respiratory Rate 25 H 23 Respiratory Effort / Characteristics Respiratory Depth Respiratory Pattern Blood Pressure 151/101 H Blood Pressure [Right Arm] Blood Pressure Mean 123 Blood Pressure Mean [Right Arm] Blood Pressure Position Blood Pressure Position [Right Arm] Pulse Oximetry 91 91 Oxygen Delivery Method Nasal Cannula Nasal Cannula Oxygen Flow Rate 6 6 Sepsis Recent Fever Within 48 Hours Sepsis New/Unexplained Change in Mental Status Sepsis Action Taken by Nursing Laboratory Data Result diagrams: 09/26/20 03:15 09/26/20 03:15 Lab Results 09/26/20 09/26/20 09/26/20 Range/Units 03:15 03:15 03:15 WBC 9.37 (4.8-10.8) K/uL RBC 5.07 (4.7-6.1) M/uL Hgb 15.7 (14.0-18.0) g/dL Hct 45.0 (42-52) % MCV 88.8 (80-100) fL MCH 31.0 (25-34) pg MCHC 34.9 (32-36) g/dL RDW Std Deviation 43.8 (36.4-46.3) fL RDW Coeff of Obi 13.4 (11.5-14.5) % Plt Count 244 (130-400) K/uL MPV 9.6 (7.4-10.4) fL Immature Gran % (Auto) 0.6 % Neut % (Auto) 85.0 % Lymph % (Auto) 9.2 % Pierce % (Auto) 3.4 % Eos % (Auto) 1.7 % Baso % (Auto) 0.1 % Neut # (Auto) 7.96 H (1.4-6.5) K/uL Lymph # (Auto) 0.86 L (1.2-3.4) K/uL Pierce # (Auto) 0.32 (0.11-0.59) K/uL Eos # (Auto) 0.16 (0-0.5) K/uL Baso # (Auto) 0.01 (0-0.2) K/uL Immature Gran # (Auto) 0.06 H (0.00-0.02) K/uL PT 13.4 H (9.0-12.0) Seconds INR 1.3 H (0.9-1.1) APTT 23.0 (21.0-31.0) Seconds PTT Ratio 0.8 Sodium 137 (136-145) mmol/L Potassium 3.6 (3.5-5.1) mmol/L Chloride 104 (98-107) mmol/L Carbon Dioxide 26 (21-32) mmol/L Anion Gap 7.0 (3-11) BUN 13 (7-18) mg/dl Creatinine 0.83 (0.6-1.4) mg/dl Est Cr Clr Drug Dosing Not Reportable Est GFR ( Amer) 117.3 Est GFR (Non-Af Amer) 101.2 BUN/Creatinine Ratio 15.9 (10-20) Glucose 112 H (70-99) mg/dl Lactate (0.4-2.0) mmol/L Calcium 7.9 L (8.5-10.1) mg/dl Magnesium 2.3 (1.8-2.4) mg/dl Total Bilirubin 0.8 (0.2-1) mg/dl AST 39 H (15-37) U/L ALT 58 (12-78) U/L Alkaline Phosphatase 128 H (45-117) U/L Troponin I < 0.015 (0-0.045) ng/ml Total Protein 7.3 (6.4-8.2) gm/dl Albumin 2.6 L (3.4-5.0) gm/dl Globulin 4.7 H (2.5-4.0) gm/dl Albumin/Globulin Ratio 0.6 L (0.9-2) 09/26/20 Range/Units 03:15 WBC (4.8-10.8) K/uL RBC (4.7-6.1) M/uL Hgb (14.0-18.0) g/dL Hct (42-52) % MCV (80-100) fL MCH (25-34) pg MCHC (32-36) g/dL RDW Std Deviation (36.4-46.3) fL RDW Coeff of Obi (11.5-14.5) % Plt Count (130-400) K/uL MPV (7.4-10.4) fL Immature Gran % (Auto) % Neut % (Auto) % Lymph % (Auto) % Pierce % (Auto) % Eos % (Auto) % Baso % (Auto) % Neut # (Auto) (1.4-6.5) K/uL Lymph # (Auto) (1.2-3.4) K/uL Pierce # (Auto) (0.11-0.59) K/uL Eos # (Auto) (0-0.5) K/uL Baso # (Auto) (0-0.2) K/uL Immature Gran # (Auto) (0.00-0.02) K/uL PT (9.0-12.0) Seconds INR (0.9-1.1) APTT (21.0-31.0) Seconds PTT Ratio Sodium (136-145) mmol/L Potassium (3.5-5.1) mmol/L Chloride (98-107) mmol/L Carbon Dioxide (21-32) mmol/L Anion Gap (3-11) BUN (7-18) mg/dl Creatinine (0.6-1.4) mg/dl Est Cr Clr Drug Dosing Est GFR ( Amer) Est GFR (Non-Af Amer) BUN/Creatinine Ratio (10-20) Glucose (70-99) mg/dl Lactate 1.4 (0.4-2.0) mmol/L Calcium (8.5-10.1) mg/dl Magnesium (1.8-2.4) mg/dl Total Bilirubin (0.2-1) mg/dl AST (15-37) U/L ALT (12-78) U/L Alkaline Phosphatase (45-117) U/L Troponin I (0-0.045) ng/ml Total Protein (6.4-8.2) gm/dl Albumin (3.4-5.0) gm/dl Globulin (2.5-4.0) gm/dl Albumin/Globulin Ratio (0.9-2) Administered Medications Discontinued Medications Dexamethasone (Dexamethasone Sod Inj 10 Mg/Ml Vial) Confirm Administered Dose 10 mg .ROUTE .[id number] [employer]itness-MED ONE Stop: 09/26/20 03:10 Last Admin: 09/26/20 04:11 Dose: Not Given Documented by: [id number] Dexamethasone (Dexamethasone Sod Inj 10 Mg/Ml Vial) 10 mg IV NOW ONE Stop: 09/26/20 03:19 Last Admin: 09/26/20 04:11 Dose: 10 mg Documented by: [id number] Discharge Plan Visit Data Chief Complaint: Shortness of Breath/Dyspnea ED Provider: Jessica Tamayo Discharge Problem: Hypoxia, Pneumonia due to 2019 novel coronavirus, Sarcoidosis Forms Stand Alone Forms: [facility] Prescriptions Prescriptions: No Action ergocalciferol (vitamin D2) [Vitamin D2] 1,250 mcg (50,000 unit) capsule 50,000 unit PO WK RF: 0 cholecalciferol (vitamin D3) [Vitamin D3] 50 mcg (2,000 unit) Tablet 50 mcg PO DAILY RF: 0
[2020-09-26 03:47] LABS: Basophils # (auto) 0.01 K/uL (0-0.2); Basophils % (auto) 0.1 %; Eosinophils # (auto) 0.16 K/uL (0-0.5); Eosinophils % (auto) 1.7 %; Hemoglobin 15.7 g/dL (14.0-18.0); Immature Granulocytes # (auto) 0.06 K/uL (0.00-0.02); Immature Granulocytes % (auto) 0.6 %; Lymphocytes # (auto) 0.86 K/uL (1.2-3.4); Lymphocytes % (auto) 9.2 %; Mean Corpuscular Hgb Conc 34.9 g/dL (32-36); Mean Corpuscular Volume 88.8 fL (80-100); Mean Platelet Volume 9.6 fL (7.4-10.4); Monocytes # (auto) 0.32 K/uL (0.11-0.59); Monocytes % (auto) 3.4 %; Neutrophils # (auto) 7.96 K/uL (1.4-6.5); Platelet Count 244 K/uL (130-400); RDW Coefficient of Variation 13.4 % (11.5-14.5); RDW Standard Deviation 43.8 fL (36.4-46.3); Red Blood Count 5.07 M/uL (4.7-6.1); White Blood Count 9.37 K/uL (4.8-10.8)
[2020-09-26 03:51] LABS: Alanine Aminotransferase 58 U/L (12-78); Albumin Level 2.6 gm/dl (3.4-5.0); Aspartate Aminotransferase 39 U/L (15-37); BUN Creatinine Ratio 15.9 (10-20); Blood Urea Nitrogen 13 mg/dl (7-18); Calcium 7.9 mg/dl (8.5-10.1); Carbon Dioxide 26 mmol/L (21-32); Chloride 104 mmol/L (98-107); Est GFR (African American) 117.3; Est GFR (Non-African American) 101.2; Glucose 112 mg/dl (70-99); INR 1.3 (0.9-1.1); Magnesium 2.3 mg/dl (1.8-2.4); Partial Thromboplastin Ratio 0.8; Potassium 3.6 mmol/L (3.5-5.1); Prothrombin Time 13.4 Seconds (9.0-12.0); Sodium 137 mmol/L (136-145)
[2020-09-26 03:56] LABS: Albumin Globulin Ratio 0.6 (0.9-2); Alkaline Phosphatase 128 U/L (45-117); Bilirubin,Total 0.8 mg/dl (0.2-1); Globulin 4.7 gm/dl (2.5-4.0); Total Protein 7.3 gm/dl (6.4-8.2); Troponin I < 0.015 ng/ml (0-0.045)
--- NOTE | 2020-09-26 05:29 | History & Physical Report ---
Date of Service September 26, 2020 Assessment & Plan (1) Pneumonia due to 2019 novel coronavirus: 50yo C male with history of Sarcoidosis presents with two weeks of illness - cough/SOB/GRULLON and weakness. He developed some hemoptysis today - scant blood tinged sputum. He tested positive for Covid-19 appx 8 days ago. Hypoxic on arrival to 76% on room air. Improvement in oxygenation with 6L NC - currently 91%. Patient is visibly dyspneic on exam and has frequent coughing spells seemingly brought on by coughing and deep breathing. He is lymphopenic. Mildly elevated INR at 1.3 and elevated AST of 39. Age, gender and underlying pulmonary disease may place patient at risk for severe disease. -Admit to medical with telemetry -Check inflammatory markers - ESR, CRP, Ferritin, Ddimer -Check Procalcitonin. Low threshold to start antibiotics -Check BNP -Maintain isolation precautions - airborne and contact -Supplemental O2 as needed to maintain saturation >92%. Will advance to Oxymask if patient continues to be dyspneic -Dexamethasone 6mg IV daily - first dose received in ER. Patient hesitant to receive IV steroids as he has been on them frequently in the past d/t his Sarcoidosis. He is agreeable to treatment given current circumstances. -Patient is approximately 2 weeks into his symptoms therefore would most likely not benefit from Remdesivir and Convalescent plasma therapies -Mucinex BID -Tessalon -Albuterol PRN -Tylenol PRN fever -SCDs to bilateral LE -Consider CTA with hemoptysis Present on Admission?: Yes (2) Sarcoidosis: Patient with history of Sarcoidosis - pulmonary involvement as well as skin and kidney. No O2 requirement at baseline. Patient currently not taking any immune-modulating treatments or chronic steroids for his sarcoidosis. He notes he has had hemoptysis in the past secondary to Sarcoidosis -Noted -Steroids and O2 as above for Covid-19 PNA Present on Admission?: Yes (3) Hemoptysis: Reported blood tinged sputum. Most likely in setting of Covid-19 PNA + underlying sarcoidoisis -Monitor F/E/N- Heplock. Monitor electrolytes. Regular diet as tolerated Ppx - SCDs. Will hold off on chemoprophylaxis for DVT for now given report of hemoptysis Code - Full Code per patient Dispo - Admit to medical with telemetry Present on Admission?: Yes History of Present Illness Chief Complaint: SOB Primary Care Provider: Alba Cookie Cobos is a 50yo C male with history of Sarcoidosis, Covid-19 diagnosed appx 8 days ago presenting with cough, SOB and dyspnea with minimal exertion. Patient denies fever/nausea/vomiting/diarrhea/headache. He has some chest discomfort, cough productive for blood tinged sputum reported today as well as dyspnea. Patient coughs while speaking and while taking deep breaths. Upon arrival to the ER he was found to be hypoxic to 76% on room air. Presently saturating at 91% on 6L NC. ER Course: Dexamethasone 10mg IV Allergies Allergy/AdvReac Type Severity Reaction Status Date / Time No Known Allergies Allergy Verified 09/26/20 04:09 Home Medications Medication Instructions Recorded Confirmed Type ergocalciferol (vitamin D2) 50,000 unit PO WK 03/06/20 09/26/20 History [Vitamin D2] cholecalciferol (vitamin D3) 50 mcg PO DAILY 09/26/20 09/26/20 History [Vitamin D3] Past Med/Surg History Medical History (Updated 09/26/20 @ 05:16 by Angelica Sams DO) Asthma doesnt use inhalers Chronic back pain Chronic GERD Diverticulitis Fibromyalgia Osteoarthritis Sarcoidosis Sleep apnea CPAP--doesnt use as ordered Tinnitus of both ears Surgical History History of bronchoscopy x2 History of colonoscopy History of umbilical hernia repair History of wisdom tooth extraction Hx of vasectomy Family History Other No family history of adverse response to anesthesia Social History Smoking Status: Former smoker Second Hand Exposure: No; Hx Alcohol Use: Yes Alcohol type: beer Hx Substance Use: No Preferred Language: Swedish Communication Ability: Effective Corporate Controller Required: No Beliefs That Will Affect Care: None Current Living Situation: Spouse and Family Current Living Situation Comment: Lives with and son Feels Safe at Home: Yes Assistive Devices: Denture - Upper and Denture - Lower Review of Systems Review of Systems: All systems reviewed & are unremarkable except as noted in HPI & below Physical Exam Physical Exam: General: ill in appearance, AA&O x 4 Skin: warm, dry, intact, no rashes or lesions HEENT: NC/AT, PERRL, EOMI, anicteric sclera, conjunctiva without injection, external ear normal to inspection and nontender, nares patent, moist mucus membranes, dentition intact, no oropharyngeal lesions, neck supple, trachea midline, no LAD, no thyromegaly, no JVD Heart: +S1/S2, regular, no m/r/g Lungs: coarse breath sounds bilaterally, patient speaking in short sentences, visibly dyspneic Abd: +BS, soft, NT/ND, no masses/organomegaly/ascites Ext: warm, 2+ pulses in UE/LE bilaterally, no clubbing/cyanosis or edema Neuro: nonfocal, patient AA&O x 4, speech intact, no facial droop, moving all e xtremities on command with equal strength 5/5 Results & Data Results & Data ([facility]) Vital Signs (Past 12 Hours) Vital Signs Temp Pulse Pulse Resp BP BP Pulse Ox 09/26/20 04:46 78 23 91 09/26/20 04:45 79 25 H 151/101 H 91 09/26/20 04:36 85 32 H 162/84 H 92 09/26/20 04:34 91 H 35 H 88 L 09/26/20 04:30 23 91 09/26/20 04:18 90 09/26/20 04:16 82 24 89 L 09/26/20 04:15 78 26 H 156/88 H 90 09/26/20 03:33 80 26 H 156/87 H 92 09/26/20 03:18 82 83 26 H 164/90 H 92 09/26/20 03:00 36.9 C 85 30 H 160/85 H 92 Laboratory Results Lab Results 09/26/20 09/26/20 09/26/20 Range/Units 03:15 03:15 03:15 WBC 9.37 (4.8-10.8) K/uL RBC 5.07 (4.7-6.1) M/uL Hgb 15.7 (14.0-18.0) g/dL Hct 45.0 (42-52) % MCV 88.8 (80-100) fL MCH 31.0 (25-34) pg MCHC 34.9 (32-36) g/dL RDW Std Deviation 43.8 (36.4-46.3) fL RDW Coeff of Obi 13.4 (11.5-14.5) % Plt Count 244 (130-400) K/uL MPV 9.6 (7.4-10.4) fL Immature Gran % (Auto) 0.6 % Neut % (Auto) 85.0 % Lymph % (Auto) 9.2 % [place] % (Auto) 3.4 % Eos % (Auto) 1.7 % Baso % (Auto) 0.1 % Neut # (Auto) 7.96 H (1.4-6.5) K/uL Lymph # (Auto) 0.86 L (1.2-3.4) K/uL [place] # (Auto) 0.32 (0.11-0.59) K/uL Eos # (Auto) 0.16 (0-0.5) K/uL Baso # (Auto) 0.01 (0-0.2) K/uL Immature Gran # (Auto) 0.06 H (0.00-0.02) K/uL PT 13.4 H (9.0-12.0) Seconds INR 1.3 H (0.9-1.1) APTT 23.0 (21.0-31.0) Seconds PTT Ratio 0.8 Sodium 137 (136-145) mmol/L Potassium 3.6 (3.5-5.1) mmol/L Chloride 104 (98-107) mmol/L Carbon Dioxide 26 (21-32) mmol/L Anion Gap 7.0 (3-11) BUN 13 (7-18) mg/dl Creatinine 0.83 (0.6-1.4) mg/dl Est Cr Clr Drug Dosing Not Reportable Est GFR ( Amer) 117.3 Est GFR (Non-Af Amer) 101.2 BUN/Creatinine Ratio 15.9 (10-20) Glucose 112 H (70-99) mg/dl Lactate (0.4-2.0) mmol/L Calcium 7.9 L (8.5-10.1) mg/dl Magnesium 2.3 (1.8-2.4) mg/dl Total Bilirubin 0.8 (0.2-1) mg/dl AST 39 H (15-37) U/L ALT 58 (12-78) U/L Alkaline Phosphatase 128 H (45-117) U/L Troponin I < 0.015 (0-0.045) ng/ml Total Protein 7.3 (6.4-8.2) gm/dl Albumin 2.6 L (3.4-5.0) gm/dl Globulin 4.7 H (2.5-4.0) gm/dl Albumin/Globulin Ratio 0.6 L (0.9-2) 09/26/20 Range/Units 03:15 WBC (4.8-10.8) K/uL RBC (4.7-6.1) M/uL Hgb (14.0-18.0) g/dL Hct (42-52) % MCV (80-100) fL MCH (25-34) pg MCHC (32-36) g/dL RDW Std Deviation (36.4-46.3) fL RDW Coeff of Obi (11.5-14.5) % Plt Count (130-400) K/uL MPV (7.4-10.4) fL Immature Gran % (Auto) % Neut % (Auto) % Lymph % (Auto) % [place] % (Auto) % Eos % (Auto) % Baso % (Auto) % Neut # (Auto) (1.4-6.5) K/uL Lymph # (Auto) (1.2-3.4) K/uL [place] # (Auto) (0.11-0.59) K/uL Eos # (Auto) (0-0.5) K/uL Baso # (Auto) (0-0.2) K/uL Immature Gran # (Auto) (0.00-0.02) K/uL PT (9.0-12.0) Seconds INR (0.9-1.1) APTT (21.0-31.0) Seconds PTT Ratio Sodium (136-145) mmol/L Potassium (3.5-5.1) mmol/L Chloride (98-107) mmol/L Carbon Dioxide (21-32) mmol/L Anion Gap (3-11) BUN (7-18) mg/dl Creatinine (0.6-1.4) mg/dl Est Cr Clr Drug Dosing Est GFR ( Amer) Est GFR (Non-Af Amer) BUN/Creatinine Ratio (10-20) Glucose (70-99) mg/dl Lactate 1.4 (0.4-2.0) mmol/L Calcium (8.5-10.1) mg/dl Magnesium (1.8-2.4) mg/dl Total Bilirubin (0.2-1) mg/dl AST (15-37) U/L ALT (12-78) U/L Alkaline Phosphatase (45-117) U/L Troponin I (0-0.045) ng/ml Total Protein (6.4-8.2) gm/dl Albumin (3.4-5.0) gm/dl Globulin (2.5-4.0) gm/dl Albumin/Globulin Ratio (0.9-2) Diagnostic Findings CXR - awaiting formal read - by my interpretation patient with bilateral airspace disease, ?RLL consolidation. Last CXR for comparison from 03/17/17 appears to have increased interstitial markings, reticular pattern with notable hilar nodes Code Status & VTE Plan VTE Prophylaxis Plan VTE Prophylaxis will be ordered: Yes PG Care Time/CCT Total # of Minutes Spent Total Time Spent with Patient: Total time spent is greater than 50% in coordination of care (as documented) at patient's floor/unit and/or counseling patient: Coding Level of Care Code 23985 Initial Inpt Care Lvl 2 Diagnoses Pneumonia due to 2019 novel coronavirus U07.1; J12.89 Sarcoidosis D86.9 Hemoptysis R04.2
[2020-09-26] MEDS ORDERED: ALBUTEROL HFA 8 GM INHALER INH PRN (06:33)
[2020-09-26] MEDS ORDERED: ONDANSETRON INJ 2 MG/ML 2 ML VIAL IV PRN (06:33)
[2020-09-26] MEDS ORDERED: dexAMETHasone 6 MG in SYRINGE 0 ML IV SCH (06:45)
--- NOTE | 2020-09-26 06:48 | XRay Report ---
XR chest 1V portable CLINICAL HISTORY: SEPSIS COMPARISON STUDY: Chest radiograph March 17, 2017. FINDINGS: Lung volumes are at the lower limits of normal. There is no pneumothorax or pleural effusio n. Mild elevation of the left hemidiaphragm is noted. Moderate enlargement of the cardiac silhouette is similar to prior exam. Right basilar consolidation is present. Additional bilateral airspace opaci ties are present with interstitial thickening. IMPRESSION: Bilateral airspace opacities and interstitial thickening with right basilar consolidation . The findings represent multifocal pneumonia. Radiographic follow up to ensure resolution is recomme nded. ACT 112: Negative or not required by law. Electronically signed by: Leon Casanova M.D. 09/26/2020 6:47 AM
[2020-09-26 07:08] LABS: D Dimer 20840 ug/L FEU (0-500)
[2020-09-26 07:12] LABS: Ferritin 1337.3 ng/ml (8-388); Phosphorus 3.7 mg/dl (2.5-4.9)
[2020-09-26] MEDS: dexAMETHasone 6 MG in SYRINGE 0 ML IV SCH (07:37)
[2020-09-26] MEDS: BENZONATATE 100 MG CAPSULE PO SCH ×3 (07:40→20:42)
[2020-09-26] MEDS: guaiFENesin 600 MG TABCR PO SCH ×2 (07:40→20:42)
[2020-09-26] MEDS ORDERED: OPTIRAY 320 125ml IV ONE (07:53)
[2020-09-26] MEDS ORDERED: Heparin IV Adult Wt-Based Standard WITH Bolus Protocol IV STA (08:17)
[2020-09-26] MEDS ORDERED: HEPARIN 25000 UNIT/500 ML D5W IV ONE (08:17)
[2020-09-26] MEDS ORDERED: HEPARIN IV BOLUS 6,000 UNITS in SYRINGE 0 ML IV ONE ×2 (08:22→08:30)
[2020-09-26] MEDS: HEPARIN SODIUM/DEXTROSE 25,000 UNITS/500 ML BAG IV SCH (08:34)
--- NOTE | 2020-09-26 08:55 | CT Scan Report ---
CT angio chest PE protocol CT DOSE: 541.62 mGycm HISTORY: 50 years-old Male with PE. Acute shortness of breath. COVID Positive. TECHNIQUE: Multiple CTA images of the chest were obtained after the intravenous administration of Opt iray 320. Coronal and sagittal MIPS were obtained from the axial data set and were submitted for rev iew. All measurements were obtained according to NASCET criteria. A dose lowering technique was util ized adhering to the principles of ALARA. COMPARISON: Chest radiograph of same day FINDINGS: CTA: Moderate cardiomegaly. No pericardial effusion. No thoracic aortic aneurysm or dissection. Patency of the imaged great vessels. Large amount of bilateral pulmonary bullae include a saddle embolus with e mboli extending into the lobar, segmental and subsegmental branches of the left lung and right lower lobe. Equivocal straightening of the intraventricular septum. CT CHEST: Unremarkable thyroid. Calcified mediastinal and hilar lymph nodes compatible with prior granulomatous disease. There are a few prominent anterior diaphragmatic/pericardial lymph nodes measuring up to 6 mm. Small left greater than right pleural effusions. No pneumothorax. Extensive bilateral groundglass alveolar opacities with intralobular septal thickening. Central airways are patent. Splenomegaly. Hepatic steatosis with hepatomegaly. Unremarkable soft tissues. Bones appear intact. Th ere is no acute fracture. IMPRESSION: 1. Cardiomegaly with a considerable amount of bilateral pulmonary emboli as above including a saddle embolus. Mild straightening of the intraventricular septum may reflect associated right heart strain. 2. Pulmonary edema with small left greater than right pleural effusions. 3. Superimposed extensive bilateral mixed groundglass and alveolar opacities are suggestive of multif ocal pneumonia. 4. Prior granulomatous disease. 5. Hepatosplenomegaly with hepatic steatosis. ACT 112: Negative or not required by law. The above report was generated using voice recognition software. It may contain grammatical, syntax o r spelling errors. Electronically signed by: Chris Baker M.D. 09/26/2020 8:53 AM
[2020-09-26] MEDS ORDERED: ICU PROTOCOL FOR HYPERGLYCEMIA PRN (10:28)
--- NOTE | 2020-09-26 11:30 | Electrocardiogram Report ---
Test Reason : Blood Pressure : / mmHG Vent. Rate : 084 BPM Atrial Rate : 084 BPM P-R Int : 130 ms QRS Dur : 090 ms QT Int : 380 ms P-R-T Axes : 033 035 007 degrees QTc Int : 449 ms Normal sinus rhythm Nonspecific ST and T wave abnormality Abnormal ECG When compared with ECG of 21-JUL-2018 20:01, No significant change was found Confirmed by Sánchez Moctezuma ([id number]) on 09/26/2020 11:29:56 AM Referred By: REFERRED SELF Confirmed By:Malcolm Moctezuma
[2020-09-26] MEDS ORDERED: hydrALAZINE HCL 20 MG/ML VIAL IV STA (11:52)
--- NOTE | 2020-09-26 12:07 | XCELERA ---
[id number] \\[id number]
--- NOTE | 2020-09-26 12:08 | Critical Care Consultation ---
Date of Consultation September 26, 2020 Assessment & Plan (1) Pulmonary embolism associated with COVID-19: 50-year-old male with a past medical history of obesity, obstructive sleep apnea not compliant on CPAP. Pulmonary sarcoidosis and asthma presenting the hospital with acute high risk, saddle pulmonary embolism and hypoxemic respiratory failure. Neurologic: No issues currently. Maintain delirium precautions. Pulmonary: Continue oxygen therapy to maintain saturations 94% on above. He has evidence of a saddle pulmonary embolism. Fortunately, his troponin, proBNP and blood pressure have all been reassuring. He is in a normal sinus rhythm. He does have some mild tachypnea. He has a history of underlying sarcoidosis. He is difficult to tell how much of the findings were seen on CT chest or chronic supposed to acute given his history of sarcoidosis. We have no prior chest imaging available for review. He does note history of compromised lung function. He is at significant risk for decompensation. Given his degree of pulmonary embolism, it would be prudent to avoid invasive positive pressure ventilation as much as possible as it can decrease his preload and make him at risk for cardiac arrest. Continue IV heparin infusion for his pulmonary embolism. Ultrasound of his lower extremities is pending. Cardiovascular: He is currently hypertensive I am giving him 1 dose of 10 mg IV hydralazine. Echocardiogram pending. Troponin and proBNP were negative. He is at risk for pulmonary hypertension and hemodynamic compromise given the size of the pulmonary embolism. We will closely monitor in the ICU. Gastrointestinal: We will start Pepcid 20 mg twice daily. Will initiate clear liquid diet. Renal: No issues currently. Infectious disease: Continue treatment with Decadron given Covid 19 infection. Not a candidate for remdesivir or convalescent plasma given that he is over 1 week out from the initial symptoms. No evidence of bacterial infection at this time. Hematologic: Heparin as noted above. Monitor for signs of bleeding. We will hold on TPA at this time given that he is hemodynamically stable. Endocrine: Monitor glucose while on Decadron VTE prophylaxis: Currently on heparin drip CODE STATUS: Full code Family at bedside: None present at bedside due to the COVID-19 pandemic Disposition: Remain in the ICU today. I have personally spent 37 minutes of critical care time in the direct management of this patient. This is a life/limb threatening event. This includes time spent evaluating patient, direct bedside care, chart review, placing orders, interpretation of diagnostic studies, discussion with consultants, patient, and family members, as well as other required patient management activities. This time is exclusive of all separately billable procedures, and teaching time and separate from and in addition to any other critical care service time. Thank you for allowing us to participate in the care of this patient. (2) Pneumonia due to 2019 novel coronavirus: (3) Hypoxia: (4) Sarcoidosis: History of Present Illness Reason for Consultation: High risk pulmonary embolism and evidence of Covid infection in a patient with a history of sarcoidosis Requesting Physician: DESTIN Sousa Attending Physician: Leonardo Sheppard History of Present Illness 50-year-old male with a past medical history of obesity, pulmonary sarcoidosis followed by [facility] pulmonology group, obstructive sleep apnea noncompliant with CPAP and hypovitaminosis D presenting to the hospital after having chest pain, dizziness and shortness of breath that started yesterday afternoon. Patient notes that he was diagnosed with COVID-19 infection approximately 1.5 weeks ago. He notes that he has felt lethargic for the last 1.5 weeks. He has also had a cough and low-grade fevers. 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 He thinks he became sick from his son who is 17 years old and goes to high school. However, his son was tested negative for COVID-19. His is also symptomatic, but she has not been tested either. ICU was consulted due to escalating oxygen requirements and a saddle pulmonary embolism that was seen on CT chest at 7:30 AM today. Straightening of the interventricular septum was also noted concerning for right heart strain. Bilateral small pleural effusions were noted. Extensive bilateral groundglass and alveolar infiltrates were noted as well. Patient notes he was diagnosed with pulmonary sarcoidosis roughly 7 to 8 years ago. He is followed by pulmonology and rheumatology. He has not been on any therapy for the past year. He notes that he was previously on hydroxychloroquine and steroids. He describes that he was nonresponsive to therapy and it was stopped. He is very hesitant to be on steroids due to side effects. He notes that he was told he has "64 to 65% lung function". We do not have any PFTs in our record. We have no old CT chest scans to compare to. He is currently requiring 10 L via oxygen mask to maintain saturations of 92%. Blood pressure is currently 184/105. Blood cultures pending. White count within normal limits. Troponin was negative. proBNP negative. Bedside echocardiogram was completed. INR was 1.3. D-dimer was 20,840. Troponin I was negative. Procalcitonin within normal limits. EKG at 2:[address] and T wave abnormalities. Allergies Allergy/AdvReac Type Severity Reaction Status Date / Time No Known Allergies Allergy Verified 09/26/20 04:09 Home Medications Medication Instructions Recorded Confirmed Type ergocalciferol (vitamin D2) 50,000 unit PO WK 03/06/20 09/26/20 History [Vitamin D2] cholecalciferol (vitamin D3) 50 mcg PO DAILY 09/26/20 09/26/20 History [Vitamin D3] Patient History Medical History (Updated 09/26/20 @ 12:02 by Richmond Rodas MD) Asthma doesnt use inhalers Chronic back pain Chronic GERD Diverticulitis Fibromyalgia Osteoarthritis Pulmonary embolism associated with COVID-19 Sarcoidosis Sleep apnea CPAP--doesnt use as ordered Tinnitus of both ears Surgical History History of bronchoscopy x2 History of colonoscopy History of umbilical hernia repair History of wisdom tooth extraction Hx of vasectomy Family History Other No family history of adverse response to anesthesia Social History Smoking Status: Never smoker Second Hand Exposure: No; Hx Alcohol Use: Yes Alcohol type: beer Hx Substance Use: No Preferred Language: Greek Communication Ability: Effective Business Information Analyst Required: No Beliefs That Will Affect Care: None Current Living Situation: Spouse and Family Current Living Situation Comment: Lives with and son Feels Safe at Home: Yes Assistive Devices: None Review of Systems Review of Systems: All systems reviewed & are unremarkable except as noted in HPI & below Physical Exam Constitutional: Obese appearing male in mild distress with tachypnea. Eyes: PERRL, conjunctivae normal, anicteric sclerae ENMT: external ear and nose normal, oropharynx normal Neck: + thick neck Respiratory: Mild rhonchi diffusely. Tachypneic. Paradoxical thoracoabd ominal movements present. Cardiovascular: RRR, no murmur, no edema Gastrointestinal (Abdomen): normal bowel sounds, soft, nontender, no hepatosplenomegaly Musculoskeletal: no cyanosis or clubbing, extremities motor strength 5/5 Skin: no rashes, warm and dry Neurologic: PERRL, EOMI, accommodation nl, no face palsy, no dysarthria Psychiatric: A+Ox3, euthymic affect Results & Data Results & Data ([facility]) Vital Signs (Past 12 Hours) Vital Signs Temp Pulse Pulse Resp BP BP Pulse Ox 09/26/20 10:28 79 09/26/20 07:00 98.4 F 81 24 166/98 H 93 09/26/20 06:32 160/92 H 09/26/20 06:00 97.7 F 82 28 H 170/90 H 92 09/26/20 05:42 98.1 F 09/26/20 05:30 79 24 170/93 H 92 09/26/20 05:16 81 21 91 09/26/20 05:15 79 23 151/96 H 92 09/26/20 05:01 84 30 H 90 09/26/20 05:00 81 28 H 169/98 H 91 09/26/20 04:46 78 23 91 09/26/20 04:45 79 25 H 151/101 H 91 09/26/20 04:36 85 32 H 162/84 H 92 09/26/20 04:34 91 H 35 H 88 L 09/26/20 04:30 23 91 09/26/20 04:18 90 09/26/20 04:16 82 24 89 L 09/26/20 04:15 78 26 H 156/88 H 90 09/26/20 03:33 80 26 H 156/87 H 92 09/26/20 03:18 82 83 26 H 164/90 H 92 09/26/20 03:00 98.4 F 85 30 H 160/85 H 92 I reviewed the vital signs, labs and personally reviewed the CT chest. Coding Level of Care Code Critical Care 1st 30-74 mins Diagnoses Pulmonary embolism associated with COVID-19 U07.1; I26.99 Pneumonia due to 2019 novel coronavirus U07.1; J12.89 Hypoxia R09.02 Sarcoidosis D86.9 Time Spent (min) 37
--- NOTE | 2020-09-26 14:26 | Ultrasound Report ---
ULTRASOUND BILATERAL LOWER EXTREMITY VENOUS CLINICAL HISTORY: Pulmonary embolus. Covid. COMPARISON STUDY: Left lower extremity venous ultrasound dated 03/17/2017. TECHNIQUE: Portable real-time, grayscale, and color Doppler sonography of the deep veins of the right and left lower extremity was performed from the inguinal crease to the calf. Compression and augment ation were utilized. FINDINGS: Right lower extremity: There is occlusive deep venous thrombosis identified in the right calf within the posterior tibial and peroneal veins. The common femoral, superficial femoral, and popliteal veins are patent and normally compressible. The greater saphenous vein and the profunda femoris vein at th e junction with the common femoral vein are clear. Left lower extremity: There is no sonographic evidence of deep venous thrombosis identified in the le ft lower extremity. The common femoral, superficial femoral, and popliteal veins are patent and traci lly compressible. The greater saphenous vein and the profunda femoris vein at the junction with the c ommon femoral vein are clear. The visualized calf veins are patent. IMPRESSION: 1. There is occlusive deep venous thrombosis in the right calf as above. 2. There is no sonographic evidence of deep venous thrombosis in the left lower extremity. ACT 112: Negative or not required by law. Electronically signed by: Hussein Duran M.D. 09/26/2020 2:25 PM
[2020-09-26 15:13] LABS: Partial Thromboplastin Ratio 1.3; Partial Thromboplastin Time 35.9 Seconds (21.0-31.0)
[2020-09-26] MEDS ORDERED: HEPARIN IV BOLUS 3,000 UNITS in SYRINGE 0 ML IV ONE (16:30)
--- NOTE | 2020-09-26 18:02 | Hospitalist Progress Note ---
Date of Service September 26, 2020 Assessment & Plan (1) Pulmonary embolism associated with COVID-19: This is a 50 yo male that presented with progressive SOB. He tested positive for COVID 19 on 09/18 after being in contact with his son who contracted it at school on the [employer] school bus. His is also positive and is currently in isolation at home. The patient had an elevated D-dimer and was found to have a submassive saddle emboli as well as some small bilateral pleural effusions. He has a scant amount of hemoptysis. Started on weight based heparin gtt with a bolus. Transferred to ICU although he was hemodynamically stable Discussed with photographers' model to coordinate care No prior hx of clots LE Doppler with right occlusive DVT in the calf and peroneal veins Echo completed. LVEF 55-60%. No right heart strain. No wall motion abnormality (2) Pneumonia due to 2019 novel coronavirus: Positive COVID test 09/18/20 Dexamethasone 6mg IV daiy for 10 days or until discharged No indication for remdesivir or convalescent plasma at this time as testing was positive 8 days ago Heparin gtt for saddle emboli (3) Hypoxia: No prior supplemental oxygen needs No use of inhalers at home No prior respiratory illness No smoking history although patient uses snuff and goes through about 5 cans per week Etiology is multifactorial including PE and multifocal pneumonia secondary to COVID-19 Titrate O2 to >92% (4) Sarcoidosis: Dx by bronchoscopy X [address] 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 Sheppard Patient seen and examined after critical value of D-Dimer of 20,840 was reported. Patient was SOB and hypoxic requiring 8 L/MIN via Oxymask. He denied pleuritic pain but did have hemoptysis. He was tachycardic but denied awareness of palpitations. No n/v/d. Denied fever or chills. Patient was positive for COVID 19 and started treatment with Dexamethasone and remdesivir. Review of Systems Review of Systems: All systems reviewed & are unremarkable except as noted in Subjective Physical Exam Constitutional: WD/WN, vitals as above + diaphoretic Eyes: PERRL, conjunctivae normal, anicteric sclerae ENMT: Ears: no hearing impairment Neck: trachea midline Respiratory: + respiratory distress; no stridor Auscultation: + crackles Cardiovascular: Rate/Rhythm: regular rhythm and + tachycardic Vessels: no carotid bruit Chest (Breasts): Chest: normal inspection of chest Gastrointestinal (Abdomen): Inspection/Auscultation: normal bowel sounds Percussion/Palpation: abdomen soft; abdomen nontender and no guarding Musculoskeletal: Head/Neck/Chest: neck supple Neurologic: AXOX3 Results & Data Results & Data ([facility]) Vital Signs (Past 12 Hours) Vital Signs Temp Pulse Pulse Resp BP Pulse Ox 09/26/20 10:28 79 09/26/20 07:00 36.9 C 81 24 166/98 H 93 09/26/20 06:32 160/92 H 09/26/20 06:00 36.5 C 82 28 H 170/90 H 92 09/26/20 05:42 [address] angio chest PE protocol CT DOSE: 541.62 mGycm HISTORY: 50 years-old Male with PE. Acute shortness of breath. COVID Positive. TECHNIQUE: Multiple CTA images of the chest were obtained after the intravenous administration of Optiray 320. Coronal and sagittal MIPS were obtained from the axial data set and were submitted for review. All measurements were obtained according to NASCET criteria. A dose lowering technique was utilized adhering to the principles of ALARA. COMPARISON: Chest radiograph of same day FINDINGS: CTA: Moderate cardiomegaly. No pericardial effusion. No thoracic aortic aneurysm or dissection. Patency of the imaged great vessels. Large amount of bilateral pulmonary bullae include a saddle embolus with emboli extending into the lobar, segmental and subsegmental branches of the left lung and right lower lobe. Equivocal straightening of the intraventricular septum. CT CHEST: Unremarkable thyroid. Calcified mediastinal and hilar lymph nodes compatible with prior granulomatous disease. There are a few prominent anterior diaphragmatic/pericardial lymph nodes measuring up to 6 mm. Small left greater than right pleural effusions. No pneumothorax. Extensive bilateral groundglass alveolar opacities with intralobular septal thickening. Central airways are patent. Splenomegaly. Hepatic steatosis with hepatomegaly. Unremarkable soft tissues. Bones appear intact. There is no acute fracture. IMPRESSION: 1. Cardiomegaly with a considerable amount of bilateral pulmonary emboli as above including a saddle embolus. Mild straightening of the intraventricular septum may reflect associated right heart strain. 2. Pulmonary edema with small left greater than right pleural effusions. 3. Superimposed extensive bilateral mixed groundglass and alveolar opacities are suggestive of multifocal pneumonia. 4. Prior granulomatous disease. 5. Hepatosplenomegaly with hepatic steatosis. ACT 112: Negative or not required by law. The above report was generated using voice recognition software. It may contain grammatical, syntax or spelling errors. Electronically signed by: Chris Baker M.D. 09/26/2020 8:53 AM ULTRASOUND BILATERAL LOWER EXTREMITY VENOUS CLINICAL HISTORY: Pulmonary embolus. Covid. COMPARISON STUDY: Left lower extremity venous ultrasound dated 03/17/2017. TECHNIQUE: Portable real-time, grayscale, and color Doppler sonography of the deep veins of the right and left lower extremity was performed from the inguinal crease to the calf. Compression and augmentation were utilized. FINDINGS: Right lower extremity: There is occlusive deep venous thrombosis identified in the right calf within the posterior tibial and peroneal veins. The common femoral, superficial femoral, and popliteal veins are patent and normally compressible. The greater saphenous vein and the profunda femoris vein at the junction with the common femoral vein are clear. Left lower extremity: There is no sonographic evidence of deep venous thrombosis identified in the left lower extremity. The common femoral, superficial femoral, and popliteal veins are patent and normally compressible. The greater saphenous vein and the profunda femoris vein at the junction with the common femoral vein are clear. The visualized calf veins are patent. IMPRESSION: 1. There is occlusive deep venous thrombosis in the right calf as above. 2. There is no sonographic evidence of deep venous thrombosis in the left lower extremity. ACT 112: Negative or not required by law. Electronically signed by: Hussein Duran M.D. 09/26/2020 2:25 PM PG Care Time/CCT Total # of Minutes Spent Total Time Spent with Patient: Total time spent is greater than 50% in coordination of care (as documented) at patient's floor/unit and/or counseling patient: 60 minutes of critical care time Coding Level of Care Code 78593 Subseq Hosp Care Lvl 3 Diagnoses Pulmonary embolism associated with COVID-19 U07.1; I26.99 Pneumonia due to 2019 novel coronavirus U07.1; J12.89 Hypoxia R09.02 Sarcoidosis D86.9 DVT prophylaxis Z29.9 Time Spent (min) 60 Comment 60 minutes of critical care time
[2020-09-26] MEDS: FAMOTIDINE 20 MG in SYRINGE 3 ML IV SCH (20:42)
[2020-09-26 22:43] LABS: Partial Thromboplastin Ratio 1.5; Partial Thromboplastin Time 40.8 Seconds (21.0-31.0)
[2020-09-27] MEDS: HEPARIN SODIUM/DEXTROSE 25,000 UNITS/500 ML BAG IV SCH ×2 (01:02→15:22)
[2020-09-27 05:05] LABS: Basophils # (auto) 0.01 K/uL (0-0.2); Basophils % (auto) 0.1 %; Eosinophils # (auto) 0.01 K/uL (0-0.5); Eosinophils % (auto) 0.1 %; Hematocrit (blood only) 43.9 % (42-52); Hemoglobin 14.9 g/dL (14.0-18.0); Immature Granulocytes # (auto) 0.09 K/uL (0.00-0.02); Immature Granulocytes % (auto) 0.7 %; Lymphocytes # (auto) 0.65 K/uL (1.2-3.4); Lymphocytes % (auto) 5.3 %; Mean Corpuscular Hemoglobin 30.3 pg (25-34); Mean Corpuscular Hgb Conc 33.9 g/dL (32-36); Mean Corpuscular Volume 89.4 fL (80-100); Mean Platelet Volume 9.9 fL (7.4-10.4); Monocytes # (auto) 1.07 K/uL (0.11-0.59); Monocytes % (auto) 8.7 %; Neutrophils # (auto) 10.52 K/uL (1.4-6.5); Neutrophils % (auto) 85.1 %; Platelet Count 261 K/uL (130-400); RDW Coefficient of Variation 13.2 % (11.5-14.5); RDW Standard Deviation 43.3 fL (36.4-46.3); Red Blood Count 4.91 M/uL (4.7-6.1); White Blood Count 12.35 K/uL (4.8-10.8)
[2020-09-27 05:17] LABS: Partial Thromboplastin Ratio 1.6; Partial Thromboplastin Time 44.7 Seconds (21.0-31.0)
[2020-09-27 05:21] LABS: Albumin Level 2.6 gm/dl (3.4-5.0); BUN Creatinine Ratio 16.3 (10-20); Bilirubin Direct 0.1 mg/dl (0-0.2); Calcium 8.2 mg/dl (8.5-10.1); Creatinine Clr Calc Pharmacy 121.2 ml/min; Est GFR (African American) 120.3; Est GFR (Non-African American) 103.8; Magnesium 2.8 mg/dl (1.8-2.4); Potassium 4.1 mmol/L (3.5-5.1)
[2020-09-27 05:32] LABS: Bilirubin,Total 0.3 mg/dl (0.2-1); Phosphorus 4.5 mg/dl (2.5-4.9); Total Protein 7.2 gm/dl (6.4-8.2)
[2020-09-27] MEDS: FAMOTIDINE 20 MG in SYRINGE 3 ML IV SCH (08:10)
[2020-09-27] MEDS: dexAMETHasone 6 MG in SYRINGE 0 ML IV SCH (08:11)
[2020-09-27] MEDS: guaiFENesin 600 MG TABCR PO SCH ×2 (08:11→19:56)
[2020-09-27] MEDS: BENZONATATE 100 MG CAPSULE PO SCH ×3 (08:11→19:57)
[2020-09-27] MEDS ORDERED: DEXAMETHASONE SOD INJ 10 MG/ML VIAL IV SCH (09:00)
[2020-09-27 11:52] LABS: Partial Thromboplastin Ratio 1.4; Partial Thromboplastin Time 40.1 Seconds (21.0-31.0)
--- NOTE | 2020-09-27 12:29 | Critical Care Progress Note ---
Date of Service September 27, 2020 Assessment & Plan (1) Pulmonary embolism associated with COVID-19: 50-year-old male with a past medical history of obesity, obstructive sleep apnea not compliant on CPAP. Pulmonary sarcoidosis and asthma presenting the hospital with acute high risk, saddle pulmonary embolism and hypoxemic respiratory failure. Neurologic: No issues currently. Maintain delirium precautions. Pulmonary: Continue oxygen therapy to maintain saturations 94% on above. He has evidence of a saddle pulmonary embolism. Fortunately, his troponin, proBNP and blood pressure have all been reassuring. He is in a normal sinus rhythm. He does have some mild tachypnea. He has a history of underlying sarcoidosis. It is difficult to tell how much of the findings were seen on CT chest or chronic supposed to acute given his history of sarcoidosis. We have no prior chest imaging available for review. He does note history of compromised lung function. He is at significant risk for decompensation. Given his degree of pulmonary embolism, it would be prudent to avoid invasive positive pressure ventilation as much as possible as it can decrease his preload and make him at risk for cardiac arrest. Continue IV heparin infusion for his pulmonary embolism. DVT in right calf note. Cardiovascular: Echo without evidence of RV strain Gastrointestinal: We will start Pepcid 20 mg twice daily. Advancing diet to heart health. Renal: No issues currently. Infectious disease: Continue treatment with Decadron given Covid 19 infection. Not a candidate for remdesivir or convalescent plasma given that he is over 1 week out from the initial symptoms. No evidence of bacterial infection at this time. Hematologic: Heparin as noted above. Monitor for signs of bleeding. We will hold on TPA at this time given that he is hemodynamically stable. Endocrine: Monitor glucose while on Decadron VTE prophylaxis: Currently on heparin drip CODE STATUS: Full code Family at bedside: None present at bedside due to the COVID-19 pandemic Disposition: Remain in the ICU today. I have personally spent 35 minutes of critical care time in the direct management of this patient. This is a life/limb threatening event. This includes time spent evaluating patient, direct bedside care, chart review, placing orders, interpretation of diagnostic studies, discussion with consultants, patient, and family members, as well as other required patient management activities. This time is exclusive of all separately billable procedures, and teaching time and separate from and in addition to any other critical care service time. Thank you for allowing us to participate in the care of this patient. (2) Pneumonia due to 2019 novel coronavirus: (3) Hypoxia: (4) Sarcoidosis: Admission and Anticipated Discharge Date Admission Date: September 26, 2020 Subjective Requiring HFNC this morning. Patient with mild shortness of breath. He is upset and wants to go home. Requesting more robust diet. Review of Systems Review of Systems: All systems reviewed & are unremarkable except as noted in HPI & below Physical Exam Eyes: PERRL, conjunctivae normal, anicteric sclerae ENMT: external ear and nose normal, oropharynx normal Neck: + thick neck Cardiovascular: RRR, no murmur, no edema Gastrointestinal (Abdomen): normal bowel sounds, soft, nontender, no hepatosplenomegaly Musculoskeletal: no cyanosis or clubbing, extremities motor strength 5/5 Skin: no rashes, warm and dry Neurologic: PERRL, EOMI, accommodation nl, no face palsy, no dysarthria Psychiatric: A+Ox3, euthymic affect Results & Data Results & Data ([facility]) Vital Signs (Past 12 Hours) Vital Signs Temp Pulse Pulse Resp BP Pulse Ox 09/27/20 12:00 69 17 09/27/20 11:27 71 18 167/83 H 09/27/20 11:10 72 24 92 09/27/20 11:00 66 20 09/27/20 10:27 70 22 150/89 H 09/27/20 10:00 72 24 09/27/20 09:27 80 21 155/92 H 09/27/20 09:00 73 17 95 09/27/20 08:38 68 22 91 09/27/20 08:27 70 19 146/90 H 92 09/27/20 08:00 97.5 F L 62 30 H 91 09/27/20 07:27 68 24 159/80 H 93 09/27/20 07:00 62 24 92 09/27/20 06:27 67 23 157/79 H 92 09/27/20 05:27 64 19 141/83 H 92 09/27/20 04:27 58 L 19 132/75 93 09/27/20 04:00 98.2 F 09/27/20 03:27 58 L 23 125/77 90 09/27/20 03:20 66 22 93 01/01/21 02:27 68 18 134/77 92 09/27/20 01:28 69 17 119/79 94 09/27/20 00:27 62 17 150/85 H I reviewed vital signs, labs and imaging Coding Level of Care Code Critical Care 1st 30-74 mins Diagnoses Pulmonary embolism associated with COVID-19 U07.1; I26.99 Pneumonia due to 2019 novel coronavirus U07.1; J12.89 Hypoxia R09.02 Sarcoidosis D86.9 Time Spent (min) 35
[2020-09-27] MEDS ORDERED: PANTOprazole 40 MG TAB PO SCH (17:15)
[2020-09-27] MEDS: LANSOPRAZOLE 15 MG SOLTAB PO SCH (18:07)
[2020-09-27] MEDS: ACETAMINOPHEN 325 MG TAB PO PRN (18:12)
[2020-09-27 18:29] LABS: Partial Thromboplastin Ratio 1.4; Partial Thromboplastin Time 40.4 Seconds (21.0-31.0)
--- NOTE | 2020-09-27 22:21 | Hospitalist Progress Note ---
Date of Service September 27, 2020 Assessment & Plan (1) Pulmonary embolism associated with COVID-19: Patient has saddle pulmonary embolism. DVT in right lower extremity. Likely secondary to COVID 19 infection. Requiring high amounts of oxygen. Willl continue on heparin IV. May consider warfarin tomorrow. D/W Automotive Software Engineer, [place] to transfer out of unit. Ordeer placed for PCU. (2) Pneumonia due to 2019 novel coronavirus: 50yo C male with history of Sarcoidosis presents with two weeks of illness - cough/SOB/GRULLON and weakness. He developed some hemoptysis today - scant blood tinged sputum. He tested positive for Covid-19 appx 8 days ago. Hypoxic on a rrival to 76% on room air. Improvement in oxygenation with 6L NC - currently 91%. Patient is visibly dyspneic on exam and has frequent coughing spells seemingly brought on by coughing and deep breathing. He is lymphopenic. Mildly elevated INR at 1.3 and elevated AST of 39. Age, gender and underlying pulmonary disease may place patient at risk for severe disease. -Admit to medical with telemetry but transferred to ICU due to saddle pulmonary embolism and rising oxygen requirements. -Maintain isolation precautions - airborne and contact -Supplemental O2 as needed to maintain saturation >92%. Now on high flow. -Dexamethasone 6mg IV daily - first dose received in ER. Patient hesitant to receive IV steroids as he has been on them frequently in the past d/t his Sarcoidosis. He is agreeable to treatment given current circumstances. -Patient is approximately 2 weeks into his symptoms therefore would most likely not benefit from Remdesivir and Convalescent plasma therapies -Mucinex BID -Tessalon -Albuterol PRN -Tylenol PRN fever -SCDs to bilateral LE (3) Hypoxia: (4) Sarcoidosis: Patient with history of Sarcoidosis - pulmonary involvement as well as skin and kidney. No O2 requirement at baseline. Patient currently not taking any immune-modulating treatments or chronic steroids for his sarcoidosis. He notes he has had hemoptysis in the past secondary to Sarcoidosis -Noted -Steroids and O2 as above for Covid-19 PNA (5) DVT prophylaxis: Admission and Anticipated Discharge Date Admission Date: September 26, 2020 Subjective Patient seen thorugh door as limiting provider contact to one provider per day during global pandemic. Currently is being seen by Automotive Software Engineer Review of Systems Review of Systems: Other Physical Exam Physical Exam: Patient appears comfortable on high floow nasal cannula in room Results & Data Results & Data ([facility]) Vital Signs (Past 12 Hours) Vital Signs Pulse Pulse Resp BP Pulse Ox 09/27/20 21:18 93 H 24 92 09/27/20 19:00 82 22 93 09/27/20 18:27 82 35 H 176/93 H 93 09/27/20 18:00 78 21 94 09/27/20 17:27 83 21 168/95 H 93 09/27/20 17:00 81 29 H 94 09/27/20 16:55 78 24 94 09/27/20 16:27 78 25 H 166/115 H 93 09/27/20 16:00 85 20 91 09/27/20 15:27 84 31 H 147/101 H 93 09/27/20 15:00 80 26 H 95 09/27/20 14:27 82 24 153/84 H 92 09/27/20 14:00 83 30 H 96 09/27/20 13:27 79 28 H 164/85 H 95 09/27/20 13:00 79 27 H 97 09/27/20 12:28 81 19 144/90 H 97 09/27/20 12:00 69 17 09/27/20 11:27 71 18 167/83 H 09/27/20 11:10 72 24 92 09/27/20 11:00 66 20 09/27/20 10:27 70 22 150/89 H PG Care Time/CCT Total # of Minutes Spent Total Time Spent with Patient: Total time spent is greater than 50% in coordination of care (as documented) at patient's floor/unit and/or counseling patient: Coding Level of Care Code 76238 Subseq Hosp Care Lvl 2 Diagnoses Pulmonary embolism associated with COVID-19 U07.1; I26.99 Pneumonia due to 2019 novel coronavirus U07.1; J12.89 Hypoxia R09.02 Sarcoidosis D86.9 DVT prophylaxis Z29.9 Time Spent (min) 25
[2020-09-28 01:07] LABS: Partial Thromboplastin Ratio 1.8
[2020-09-28 01:08] LABS: Partial Thromboplastin Time 49.8 Seconds (21.0-31.0)
[2020-09-28] MEDS: HEPARIN SODIUM/DEXTROSE 25,000 UNITS/500 ML BAG IV SCH ×4 (03:00→19:23)
[2020-09-28] MEDS: ACETAMINOPHEN 325 MG TAB PO PRN (03:18)
[2020-09-28] MEDS: dexAMETHasone 6 MG in SYRINGE 0 ML IV SCH (08:20)
[2020-09-28] MEDS: guaiFENesin 600 MG TABCR PO SCH ×2 (08:21→20:13)
[2020-09-28] MEDS: LANSOPRAZOLE 15 MG SOLTAB PO SCH (08:21)
[2020-09-28] MEDS: BENZONATATE 100 MG CAPSULE PO SCH ×3 (08:21→20:13)
--- NOTE | 2020-09-28 08:22 | Pulmonology Progress Note ---
Date of Service September 28, 2020 Assessment & Plan (1) Pulmonary embolism associated with COVID-19: Patient with saddle pulmonary embolus and lower extremity DVT likely related to Covid infection. Recommend continuing heparin drip today and transitioning to oral anticoagulation tomorrow. I will defer to the hospitalist with regards to oral anticoagulation. He could potentially be a candidate for DOAC therapy. He will need management and follow-up of his sarcoidosis by his outpatient pulmonary team and community program assistant in [facility]. Continue 10 days of Decadron for his COVID-19 infection. I would recommend sending him home on a prednisone steroid taper once he is ready for discharge as it is difficult to ascertain how much of his current hypoxia is related to an exacerbation of his underlying sarcoidosis as well. I do not have old CT imaging of his chest to compare to the current CT chest. Continue to wean oxygen to maintain saturations of 92 to 94%. Continued weight loss is advised. Complete cessation of tobacco products is advised as well. He has been chewing tobacco while in the hospital. Continue treatment for GERD with Prevacid. (2) Hemoptysis: (3) Sarcoidosis: (4) Chronic GERD: (5) Tobacco dependence due to chewing tobacco: Admission and Anticipated Discharge Date Admission Date: September 26, 2020 Subjective Patient saturating 99% on 13 L of oxygen via nasal cannula. He denies any hemoptysis. He is sleepy this morning. He denies any chest pain. He is feeling better overall. Review of Systems Review of Systems: All systems reviewed & are unremarkable except as noted in HPI & below Physical Exam Eyes: PERRL, conjunctivae normal, anicteric sclerae ENMT: external ear and nose normal, oropharynx normal Neck: + thick neck Respiratory: normal respiratory effort, lungs clear to auscultation Cardiovascular: RRR, no murmur, no edema Gastrointestinal (Abdomen): normal bowel sounds, soft, nontender, no hepatosplenomegaly Musculoskeletal: no cyanosis or clubbing, extremities motor strength 5/5 Skin: no rashes, warm and dry Neurologic: PERRL, EOMI, accommodation nl, no face palsy, no dysarthria Psychiatric: A+Ox3, euthymic affect Results & Data Results & Data ([facility]) Vital Signs (Past 12 Hours) Vital Signs Temp Pulse Pulse Resp BP Pulse Ox 09/28/20 04:27 98.6 F 64 19 155/88 H 96 01/02/21 03:27 63 15 153/91 H 94 09/28/20 02:27 66 20 147/93 H 96 09/28/20 01:27 64 20 147/84 H 95 09/28/20 00:27 68 22 152/86 H 93 09/27/20 23:59 76 09/27/20 23:27 76 25 H 159/113 H 96 09/27/20 22:27 79 24 159/77 H 93 09/27/20 21:27 75 26 H 136/69 96 09/27/20 21:18 93 H 24 92 09/27/20 20:27 98.2 F 80 28 H 154/82 H 92 I reviewed the vital signs, labs and imaging PG Care Time/CCT Total # of Minutes Spent Total Time Spent with Patient: Total time spent is greater than 50% in coordination of care (as documented) at patient's floor/unit and/or counseling patient: Coding Level of Care Code 32882 Subseq Hosp Care Lvl 3 Diagnoses Pulmonary embolism associated with COVID-19 U07.1; I26.99 Hemoptysis R04.2 Sarcoidosis D86.9 Chronic GERD K21.9 Tobacco dependence due to chewing tobacco F17.220
--- NOTE | 2020-09-28 10:49 | Hospitalist Progress Note ---
Date of Service September 28, 2020 Assessment & Plan (1) Acute respiratory failure with hypoxia: 2nd to extensive b/l PEs including saddle embolus, COVID-19 pneumonia, +/- sarcoid. Heparin drip/coumadin, dexamethasone for COVID-19 / sarcoid. Continue HFNC - maintain O2 sats 90-94%. Self-proning encouraged. Pulmonary toilet. Deferring on IV antibiotics given normal procal, etc. (2) Pulmonary embolism associated with COVID-19: Saddle pulmonary embolism and b/l pulmonary emboli. DVT in right lower extremity. 2nd to COVID 19 infection in setting of chronic sarcoid. Continue heparin IV. Start warfarin 10mg/day. Daily INR. (3) Right leg DVT: Heparin/coumadin. PTT and INR daily. Due to increased clotting risk in setting of COVID-19 infection & sarcoid. (4) Pneumonia due to 2019 novel coronavirus: Extensive, as seen on CTA chest. Dexamethasone - day #3 of 10. Patient is at least 2 weeks into his illness - thus, remdesivir and convalescent plasma deferred. Cont HFNC, pulmonary toilet, self-proning, supportive care. Add zinc. Add vitamin D. (5) Hemoptysis: Likely 2nd to extensive PEs. Resolved. Continue observation. H/H in am. (6) Sarcoidosis: History of Sarcoidosis - pulmonary involvement as well as skin and kidney. No O2 requirement at baseline. Patient currently not taking any immune- modulating treatments or chronic steroids for his sarcoidosis. Follows with pulmonary in [place]. Uncertain if some of his lung parenchyma findings on CT are due to active sarcoid. Thus, continue IV steroids and then PO steroids at d/c with close pulmonary f/u shortly after. Likely to need NC O2 at discharge given his CTA findings. (7) Chronic GERD: Cont PPI (8) Tobacco dependence due to chewing tobacco: Transition Advisor to quit (9) DVT prophylaxis: heparin drip with coumadin updated by phone transfer to PCU today Admission and Anticipated Discharge Date Admission Date: September 26, 2020 Subjective Patient with significant cough. We discussed proning during the day-time, perhaps 3-4x's 30 minutes each session. We discussed pulmonary toilet. To his knowledge his sarcoid has been in remission. Sees pulmonary in [place] at least twice yearly. Has NOT been on meds for sarcoid in some time. He has baseline dyspnea on exertion climbing 1 flight of stairs at his home. is NOT on oxygen at home. and 17yo son both with COVID at home. No prior h/o VTE. NO hemoptysis. Eating ok. Tele wnl. Review of Systems Constitutional: + fatigue and + weakness; no fever and no chills Ear, Nose, Mouth, Throat: no loss of taste or smell at this time Respiratory: + cough, + dyspnea and + dyspnea on exertion; no hemoptysis, no sputum production and no wheezing Cardiovascular: + chest pain (central, mainly w/ coughing ) Gastrointestinal: + diarrhea/loose stools; no abdominal pain Physical Exam Constitutional: no acute distress and no altered mental status ENMT: external ear and nose normal, oropharynx normal Respiratory: no respiratory distress Auscultation: + rales (b/l bases - about 1/[address] back); no wheezes Cardiovascular: Rate/Rhythm: regular rate and regular rhythm Heart Sounds: normal S1 and normal S2; no murmur Vessels: posterior tibial pulses present and dorsalis pedis pulses present; no JVD Extremities: no edema Gastrointestinal (Abdomen): normal bowel sounds, soft, nontender, no hepatosplenomegaly Skin: no rashes, warm and dry Psychiatric: A+Ox3, euthymic affect Results & Data Results & Data ([facility]) Vital Signs (Past 12 Hours) Vital Signs Temp Pulse Resp BP Pulse Ox 09/28/20 08:00 36.8 C 52 L 12 133/81 99 09/28/20 07:00 52 L 12 98 09/28/20 04:27 37 C 64 19 155/88 H 96 09/28/20 03:27 63 15 153/91 H 94 09/28/20 02:27 66 20 147/93 H 96 09/28/20 01:27 64 20 147/84 H 95 09/28/20 00:27 68 22 152/86 H 93 09/27/20 23:59 76 09/27/20 23:27 76 25 H 159/113 H 96 Laboratory Results Laboratory Results - last 24 hr 09/27/20 09/27/20 09/28/20 11:12 18:09 00:28 APTT 40.1 H 40.4 H 49.8 H* PTT Ratio 1.4 1.4 1.8 PG Care Time/CCT Total # of Minutes Spent Total Time Spent with Patient: Total time spent is greater than 50% in coordination of care (as documented) at patient's floor/unit and/or counseling patient: Coding Level of Care Code 87363 Subseq Hosp Care Lvl 3 Diagnoses Acute respiratory failure with hypoxia J96.01 Pulmonary embolism associated with COVID-19 U07.1; I26.99 Right leg DVT I82.401 Affected thrombotic vein of extremity: unspecified vein of extremity Chronicity: acute Pneumonia due to 2019 novel coronavirus U07.1; J12.89 Hemoptysis R04.2 Sarcoidosis D86.9 Chronic GERD K21.9 Tobacco dependence due to chewing tobacco F17.220 DVT prophylaxis Z29.9 (1) Right leg DVT Affected thrombotic vein of extremity: unspecified vein of extremity Chronicity: acute Qualified Code(s): I82.401 - Acute embolism and thrombosis of unspecified deep veins of right lower extremity
[2020-09-28] MEDS ORDERED: HYDROcodone/HOMATROPINE SYRUP 5MG/1.5MG 5ML UDP PO PRN (11:29)
[2020-09-28] MEDS: WARFARIN SOD 10 MG TAB PO SCH (15:42)
[2020-09-29] MEDS: HEPARIN SODIUM/DEXTROSE 25,000 UNITS/500 ML BAG IV SCH ×2 (05:15→18:33)
[2020-09-29 06:42] LABS: Appearance Urine Clear (Clear); Bilirubin Urine Negative (Negative); Blood Urine Negative (Negative); Color Urine Yellow; Glucose Urine UA Negative (Negative); Ketones Urine Negative (Negative); Leukocyte Esterase Urine Negative (Negative); Nitrite Urine Negative (Negative); Protein Urine Negative (Negative); Specific Gravity Urine 1.011 (1.000-1.030); Urobilinogen Urine Negative (Negative)
[2020-09-29 07:08] LABS: Hematocrit (blood only) 45.1 % (42-52); Hemoglobin 15.2 g/dL (14.0-18.0); Mean Corpuscular Hemoglobin 30.2 pg (25-34); Mean Corpuscular Hgb Conc 33.7 g/dL (32-36); Mean Corpuscular Volume 89.5 fL (80-100); Mean Platelet Volume 10.3 fL (7.4-10.4); Platelet Count 218 K/uL (130-400); RDW Coefficient of Variation 12.9 % (11.5-14.5); RDW Standard Deviation 42.3 fL (36.4-46.3); Red Blood Count 5.04 M/uL (4.7-6.1); White Blood Count 14.93 K/uL (4.8-10.8)
[2020-09-29 07:23] LABS: INR 1.4 (0.9-1.1); Partial Thromboplastin Ratio 2.2; Prothrombin Time 14.9 Seconds (9.0-12.0)
[2020-09-29 07:26] LABS: Partial Thromboplastin Time 61.8 Seconds (21.0-31.0)
[2020-09-29 07:36] LABS: BUN Creatinine Ratio 21.2 (10-20); Calcium 8.2 mg/dl (8.5-10.1); Creatinine Clr Calc Pharmacy 118.1 ml/min; Est GFR (Non-African American) 102.7; Potassium 3.8 mmol/L (3.5-5.1)
[2020-09-29] MEDS: dexAMETHasone 6 MG in SYRINGE 0 ML IV SCH (08:42)
[2020-09-29] MEDS: BENZONATATE 100 MG CAPSULE PO SCH ×3 (08:43→19:51)
[2020-09-29] MEDS: guaiFENesin 600 MG TABCR PO SCH ×2 (08:43→19:51)
[2020-09-29] MEDS: CHOLECALCIFEROL 1,000 UNITS 25 MCG TAB PO SCH (08:44)
[2020-09-29] MEDS: ZINC SULFATE 220 MG CAPSULE PO SCH (08:44)
[2020-09-29] MEDS: LANSOPRAZOLE 15 MG SOLTAB PO SCH (08:44)
--- NOTE | 2020-09-29 11:08 | Pulmonology Progress Note ---
Date of Service September 29, 2020 Assessment & Plan (1) Pulmonary embolism associated with COVID-19: Patient with saddle pulmonary embolus and lower extremity DVT likely related to Covid infection. He is being bridged to warfarin with heparin. Will defer to hospitalist with regards to warfarin dosage. He will need management and follow-up of his sarcoidosis by his outpatient pulmonary team and bilingual speech therapist in [facility]. Continue 10 days of Decadron for his COVID-19 infection. I would recommend sending him home on a prednisone steroid taper once he is ready for discharge as it is difficult to ascertain how much of his current hypoxia is related to an exacerbation of his underlying sarcoidosis as well. I do not have old CT imaging of his chest to compare to the current CT chest. Continue to wean oxygen to maintain saturations of 92 to 94%. His oxygenation has improved significantly in the last 3 days. Continued weight loss is advised. Complete cessation of tobacco products is advised as well. He has been chewing tobacco while in the hospital. Continue treatment for GERD with Prevacid. Pulmonary will continue to follow. (2) Hemoptysis: (3) Sarcoidosis: (4) Chronic GERD: (5) Tobacco dependence due to chewing tobacco: Admission and Anticipated Discharge Date Admission Date: September 26, 2020 Subjective Patient notes that his nose feels very dry and he is having dry secretions from his nares. He is tired today. He is requiring several liters of oxygen which is improved from yesterday. Saturating 94%. Denies any chest pain. Has a mild cough. Review of Systems Review of Systems: All systems reviewed & are unremarkable except as noted in HPI & below Physical Exam Constitutional: Sitting up in bed saturating 94% on 7 L of oxygen. Eyes: PERRL, conjunctivae normal, anicteric sclerae ENMT: external ear and nose normal, oropharynx normal Neck: + thick neck Respiratory: normal respiratory effort, lungs clear to auscultation Cardiovascular: RRR, no murmur, no edema Gastrointestinal (Abdomen): normal bowel sounds, soft, nontender, no hepatosplenomegaly Musculoskeletal: no cyanosis or clubbing, extremities motor strength 5/5 Skin: no rashes, warm and dry Neurologic: PERRL, EOMI, accommodation nl, no face palsy, no dysarthria Psychiatric: A+Ox3, euthymic affect Results & Data Results & Data ([facility]) Vital Signs (Past 12 Hours) Vital Signs Temp Pulse Resp BP Pulse Ox 09/29/20 08:59 94 09/29/20 08:45 91 09/29/20 07:22 97.5 F L 67 18 151/78 H 93 09/29/20 05:00 98.4 F 66 18 151/84 H 95 09/28/20 23:26 98.1 F 65 20 151/71 H 95 vital signs, labs and imaging reviewed. PG Care Time/CCT Total # of Minutes Spent Total Time Spent with Patient: Total time spent is greater than 50% in coordination of care (as documented) at patient's floor/unit and/or counseling patient: Coding Level of Care Code 31806 Subseq Hosp Care Lvl 2 Diagnoses Pulmonary embolism associated with COVID-19 U07.1; I26.99 Hemoptysis R04.2 Sarcoidosis D86.9 Chronic GERD K21.9 Tobacco dependence due to chewing tobacco F17.220
[2020-09-29] MEDS: WARFARIN SOD 10 MG TAB PO SCH (17:40)
[2020-09-29] MEDS: ACETAMINOPHEN 325 MG TAB PO PRN (22:16)
--- NOTE | 2020-09-29 23:46 | Hospitalist Progress Note ---
Date of Service September 29, 2020 Assessment & Plan (1) Acute respiratory failure with hypoxia: 2nd to extensive b/l PEs including saddle embolus, COVID-19 pneumonia, +/- active sarcoid. Heparin drip/coumadin, dexamethasone for COVID-19 / sarcoid. Continue HFNC - maintain O2 sats 90-94%. Wean as tolerated. Self-proning encouraged but reluctant to do it. Pulmonary toilet. Deferring on IV antibiotics given normal procal, etc. (2) Pulmonary embolism associated with COVID-19: Saddle pulmonary embolism and b/l pulmonary emboli. DVT in right lower extremity. 2nd to COVID 19 infection in setting of chronic sarcoid. Continue heparin IV. Day #2 10mg/day. Daily INR. (3) Right leg DVT: Heparin/coumadin. PTT and INR daily. Due to increased clotting risk in setting of COVID-19 infection & sarcoid. (4) Pneumonia due to 2019 novel coronavirus: Extensive, as seen on CTA chest. Dexamethasone - day #4 of 10. Patient is at least 2 weeks into his illness - thus, remdesivir and convalescent plasma deferred. Cont HFNC, pulmonary toilet, self-proning, supportive care. Cont zinc. Cont vitamin D. (5) Sarcoidosis: History of Sarcoidosis - pulmonary involvement as well as skin and kidney. No O2 requirement at baseline. Patient currently not taking any immune- modulating treatments or chronic steroids for his sarcoidosis. Follows with pulmonary in [place]. Uncertain if some of his lung parenchyma findings on CT are due to active sarcoid. Thus, continue IV steroids and then PO steroids at d/c with close pulmonary f/u shortly after. Likely to need NC O2 at discharge given his CTA findings. (6) Hemoptysis: Likely 2nd to extensive PEs. Resolved. Continue observation. H/H have been stable while here. 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 (9) DVT prophylaxis: heparin drip with coumadin updated by phone yesterday will update her tomorrow slowly progressing continue PT/OT for deconditioning Admission and Anticipated Discharge Date Admission Date: September 26, 2020 Subjective patient had "rough morning" had increasing shortness of breath - NC O2 bumped to 7 L since then, as long as he is at rest, breathing is comfortable cough continues no hemoptysis GRULLON continues tele overnight wnl no overt bleeding from any location while on heparin he stated today "It's gonna take a long time to get over this" Review of Systems Constitutional: + fatigue; no fever and no chills Respiratory: + cough, + dyspnea and + dyspnea on exertion; no hemoptysis and no wheezing Cardiovascular: no chest pain Gastrointestinal: no abdominal pain Physical Exam Constitutional: no acute distress and no altered mental status ENMT: external ear and nose normal, oropharynx normal Respiratory: no respiratory distress Auscultation: + rales (b/l bases - about 1/[address] up back -- no change.); no wheezes Cardiovascular: Rate/Rhythm: regular rate and regular rhythm Heart Sounds: normal S1 and normal S2; no murmur Vessels: posterior tibial pulses present and dorsalis pedis pulses present; no JVD Extremities: no edema Gastrointestinal (Abdomen): normal bowel sounds, soft, nontender, no hepatosplenomegaly Skin: no rashes, warm and dry Psychiatric: A+Ox3, euthymic affect Results & Data Results & Data ([facility]) Vital Signs (Past 12 Hours) Vital Signs Temp Pulse Pulse Resp BP Pulse Ox 09/29/20 23:29 37.0 C 20 153/83 H 92 09/29/20 19:13 36.6 C 76 18 153/85 H 91 09/29/20 16:00 80 Laboratory Results Laboratory Results - last 24 hr 09/29/20 09/29/20 09/29/20 06:18 06:18 06:18 WBC 14.93 H RBC 5.04 Hgb 15.2 Hct 45.1 MCV 89.5 MCH 30.2 MCHC 33.7 RDW Std Deviation 42.3 RDW Coeff of Obi 12.9 Plt Count 218 MPV 10.3 PT 14.9 H INR 1.4 H APTT 61.8 H* PTT Ratio 2.2 Sodium 137 Potassium 3.8 Chloride 105 Carbon Dioxide 27 Anion Gap 5.0 BUN 17 Creatinine 0.80 Est Cr Clr Drug Dosing 118.1 Est GFR ( Amer) 119.0 Est GFR (Non-Af Amer) 102.7 BUN/Creatinine Ratio 21.2 H Glucose 119 H Calcium 8.2 L Urine Color Urine Appearance Urine pH Ur Specific Gordon Urine Protein Urine Glucose (UA) Urine Ketones Urine Blood Urine Nitrite Urine Bilirubin Urine Urobilinogen Ur Leukocyte Esterase 09/29/20 Unknown WBC RBC Hgb Hct MCV MCH MCHC RDW Std Deviation RDW Coeff of Obi Plt Count MPV PT INR APTT PTT Ratio Sodium Potassium Chloride Carbon Dioxide Anion Gap BUN Creatinine Est Cr Clr Drug Dosing Est GFR ( Amer) Est GFR (Non-Af Amer) BUN/Creatinine Ratio Glucose Calcium Urine Color Yellow Urine Appearance Clear Urine pH 7.0 Ur Specific Gordon 1.011 Urine Protein Negative Urine Glucose (UA) Negative Urine Ketones Negative Urine Blood Negative Urine Nitrite Negative Urine Bilirubin Negative Urine Urobilinogen Negative Ur Leukocyte Esterase Negative blood cx's negative PG Care Time/CCT Total # of Minutes Spent Total Time Spent with Patient: Total time spent is greater than 50% in coordination of care (as documented) at patient's floor/unit and/or counseling patient: Coding Level of Care Code 50856 Subseq Hosp Care Lvl 3 Diagnoses Acute respiratory failure with hypoxia J96.01 Pulmonary embolism associated with COVID-19 U07.1; I26.99 Right leg DVT I82.401 Affected thrombotic vein of extremity: unspecified vein of extremity Chronicity: acute Pneumonia due to 2019 novel coronavirus U07.1; J12.89 Sarcoidosis D86.9 Hemoptysis R04.2 Chronic GERD K21.9 Tobacco dependence due to chewing tobacco F17.220 DVT prophylaxis Z29.9 (1) Right leg DVT Affected thrombotic vein of extremity: unspecified vein of extremity C hronicity: acute Qualified Code(s): I82.401 - Acute embolism and thrombosis of unspecified deep veins of right lower extremity
[2020-09-30 07:39] LABS: INR 4.1 (0.9-1.1); Partial Thromboplastin Ratio > 5.0; Prothrombin Time 39.7 Seconds (9.0-12.0)
[2020-09-30 07:43] LABS: Calcium 8.3 mg/dl (8.5-10.1); Creatinine Clr Calc Pharmacy 114.2 ml/min; Est GFR (African American) 117.3; Est GFR (Non-African American) 101.2; Potassium 3.7 mmol/L (3.5-5.1)
[2020-09-30 07:50] LABS: Partial Thromboplastin Time > 139.0 Seconds (21.0-31.0)
[2020-09-30] MEDS: dexAMETHasone 6 MG in SYRINGE 0 ML IV SCH (08:47)
[2020-09-30] MEDS: ZINC SULFATE 220 MG CAPSULE PO SCH (08:51)
[2020-09-30] MEDS: CHOLECALCIFEROL 1,000 UNITS 25 MCG TAB PO SCH (08:52)
[2020-09-30] MEDS: guaiFENesin 600 MG TABCR PO SCH ×2 (08:52→20:31)
[2020-09-30] MEDS: HEPARIN SODIUM/DEXTROSE 25,000 UNITS/500 ML BAG IV SCH ×2 (10:07→17:03)
[2020-09-30] MEDS: LANSOPRAZOLE 15 MG SOLTAB PO SCH (10:10)
[2020-09-30] MEDS: BENZONATATE 100 MG CAPSULE PO SCH ×3 (10:10→20:36)
[2020-09-30 16:45] LABS: Partial Thromboplastin Ratio 2.7
[2020-09-30 16:47] LABS: Partial Thromboplastin Time 74.8 Seconds (21.0-31.0)
--- NOTE | 2020-09-30 18:38 | Pulmonology Progress Note ---
Date of Service September 30, 2020 Assessment & Plan (1) Right leg DVT: Affected thrombotic vein of extremity: unspecified vein of extremity Chronicity: acute Qualified Code(s): I82.401 - Acute embolism and thrombosis of unspecified deep veins of right lower extremity (2) Pulmonary embolism associated with COVID-19: --Acute hypoxic respiratory failure Secondary to multilobar COVID-19 pneumonia on top of acute PE Patient is on heparin drip right now bridging to warfarin Recommend completing the course of dexamethasone for total of 10 days I think there was a component of fluid overload as well on the CAT scan with bilateral pleural effusion Patient diuresing well I think that is also playing a role in patient's improvement in oxygen requirement Incentive spirometry Guaifenesin --History of sarcoidosis 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 Continue with diuresis as tolerated Complete the course of dexamethasone for total of 10 days No further recommendations from pulmonary perspective. Will sign off. Recall if needed. Please note the above document was generated using voice recognition software. It may contain grammatical, syntax or spelling errors.Any formal questions or concerns about the content, text or information contained within the body of this dictation should be directly addressed to the provider for clarification. (3) Pulmonary embolism: (4) Acute respiratory failure with hypoxia: Admission and Anticipated Discharge Date Admission Date: September 26, 2020 Subjective Patient seen and examined at bedside. No acute distress. No adverse events overnight At the time of examination patient was saturating 95% on 6 L nasal cannula at rest. Decreased today to 4 L and patient was still saturating 92%. Denied any chest pain, no headache, no nausea, no vomiting. He does state that he gets short of breath on exertion. Good appetite. Review of Systems Review of Systems: All systems reviewed & are unremarkable except as noted in Subjective Physical Exam Physical Exam: Constitutional: No acute distress HEENT: EOMI, PERRLA Respiratory system: Decreased air entry bilaterally, no wheeze, no rhonchi, mild crackles bilaterally CVS: S1-S2 positive, no murmurs or gallops Abdomen: Soft, nontender, nondistended, positive bowel sounds x4 Extremities: +2 pulses bilaterally radialis/ dorsalis pedis, no cyanosis, no edema Neuro: Awake alert oriented x3 Psych: Normal mood and affect G/U: No Espino Skin: no rashes, warm and dry Lymphatic: no cervical or axillary lymphadenopathy Results & Data Results & Data ([facility]) Vital Signs (Past 12 Hours) Vital Signs Temp Pulse Pulse Resp BP BP Pulse Ox 09/30/20 15:36 36.6 C 80 18 159/78 H 95 09/30/20 15:19 86 09/30/20 14:55 09/30/20 11:30 37.2 C 75 20 154/85 H 98 09/30/20 07:04 36.4 C L 67 20 143/77 H 98 Pulse Ox Pulse Ox 09/30/20 15:36 09/30/20 15:19 09/30/20 14:55 94 90 09/30/20 11:30 09/30/20 07:04 09/29/20 06:18 09/30/20 06:47 PG Care Time/CCT Total # of Minutes Spent Total Time Spent with Patient: Total time spent is greater than 50% in coordination of care (as documented) at patient's floor/unit and/or counseling p atient: Coding Level of Care Code 92517 Subseq Hosp Care Lvl 3 Diagnoses Right leg DVT I82.401 Affected thrombotic vein of extremity: unspecified vein of extremity Chronicity: acute Pulmonary embolism associated with COVID-19 U07.1; I26.99 Pulmonary embolism I26.99 Acute respiratory failure with hypoxia J96.01
--- NOTE | 2020-09-30 19:52 | Hospitalist Progress Note ---
Date of Service September 30, 2020 Assessment & Plan (1) Acute respiratory failure with hypoxia: 2nd to extensive b/l PEs including saddle embolus, COVID-19 pneumonia, +/- active sarcoid. Heparin drip/coumadin, dexamethasone for COVID-19 / sarcoid. Continue HFNC - maintain O2 sats 90-94%. Wean as tolerated. Continue self-proning. Pulmonary toilet. Deferring on IV antibiotics given normal procal, etc. (2) Pulmonary embolism associated with COVID-19: Saddle pulmonary embolism and b/l pulmonary emboli. DVT in right lower extremity. 2nd to COVID 19 infection in setting of chronic sarcoid. Continue heparin IV. s/p 2 doses of 10mg each of coumadin. INR went from 1.4 to 4.1 Hold coumadin today, then resume 5mg of coumadin tomorrow (3) Right leg DVT: Heparin/coumadin. PTT and INR daily. Due to increased clotting risk in setting of COVID-19 infection & sarcoid. (4) Pneumonia due to 2019 novel coronavirus: Extensive, as seen on CTA chest. Dexamethasone - day #5 of 10. Patient is at least 2 weeks into his illness - thus, remdesivir and convalescent plasma deferred. Cont HFNC, pulmonary toilet, self-proning, supportive care. Cont zinc. Cont vitamin D. Wean O2 as tolerated. (5) Sarcoidosis: History of Sarcoidosis - pulmonary involvement as well as skin and kidney. No O2 requirement at baseline. Patient currently not taking any immune- modulating treatments or chronic steroids for his sarcoidosis. Follows with pulmonary in [place] [facility], Dr Villagomez. call placed to them today. Uncertain if some of his lung parenchyma findings on CT are due to active sarcoid. Thus, continue IV steroids and then PO steroids at d/c with close pulmonary f/u shortly after. Likely to need NC O2 at discharge given his CTA findings. (6) Hemoptysis: Likely 2nd to extensive PEs. Resolved. Continue observation. H/H have been stable while here. 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 (9) DVT prophylaxis: heparin drip with coumadin updated by phone 09/28 and 09/30 slowly progressing continue PT/OT for deconditioning Admission and Anticipated Discharge Date Admission Date: September 26, 2020 Subjective tele stable overnight feeling decent main complaint - GRULLON no dyspnea at rest no orthopnea cough is persistent - mainly dry eating very well no cp or abd pain no nausea / emesis placed call to Dr Villagomez, [facility] [place] - who follows his sarcoid awaiting call back Review of Systems Constitutional: no fever and no chills Respiratory: no hemoptysis Cardiovascular: no chest pain and no edema Gastrointestinal: no abdominal pain, no nausea and no vomiting Physical Exam Constitutional: no acute distress and no altered mental status coughing ENMT: external ear and nose normal, oropharynx normal Respiratory: no respiratory distress Auscultation: + rales (b/l bases - modestly improved today ); no wheezes Cardiovascular: Rate/Rhythm: regular rate and regular rhythm Heart Sounds: normal S1 and normal S2; no murmur Vessels: posterior tibial pulses present and dorsalis pedis pulses present; no JVD Extremities: no edema Gastrointestinal (Abdomen): normal bowel sounds, soft, nontender, no hepatosplenomegaly Skin: no rashes, warm and dry Psychiatric: A+Ox3, euthymic affect Results & Data Results & Data ([facility]) Vital Signs (Past 12 Hours) Vital Signs Temp Pulse Pulse Resp BP BP Pulse Ox 09/30/20 15:36 36.6 C 80 18 159/78 H 95 09/30/20 15:19 86 09/30/20 14:55 09/30/20 11:30 37.2 C 75 20 154/85 H 98 Pulse Ox Pulse Ox 09/30/20 15:36 09/30/20 15:19 09/30/20 14:55 94 90 09/30/20 11:30 Laboratory Results Laboratory Results - last 24 hr 09/30/20 09/30/20 09/30/20 06:47 06:47 16:14 PT 39.7 H INR 4.1 H APTT > 139.0 H* 74.8 H* PTT Ratio > 5.0 2.7 Sodium 135 L Potassium 3.7 Chloride 102 Carbon Dioxide 29 Anion Gap 4.0 BUN 17 Creatinine 0.83 Est Cr Clr Drug Dosing 114.2 Est GFR ( Amer) 117.3 Est GFR (Non-Af Amer) 101.2 BUN/Creatinine Ratio 20.0 Glucose 129 H Calcium 8.3 L PG Care Time/CCT Total # of Minutes Spent Total Time Spent with Patient: Total time spent is greater than 50% in coordination of care (as documented) at patient's floor/unit and/or counseling patient: Coding Level of Care Code 86395 Subseq Hosp Care Lvl 3 Diagnoses Acute respiratory failure with hypoxia J96.01 Pulmonary embolism associated with COVID-19 U07.1; I26.99 Right leg DVT I82.401 Affected thrombotic vein of extremity: unspecified vein of extremity Chronicity: acute Pneumonia due to 2019 novel coronavirus U07.1; J12.89 Sarcoidosis D86.9 Hemoptysis R04.2 Chronic GERD K21.9 Tobacco dependence due to chewing tobacco F17.220 DVT prophylaxis Z29.9 (1) Right leg DVT Affected thrombotic vein of extremity: unspecified vein of extremity Chronicity: acute Qualified Code(s): I82.401 - Acute embolism and thrombosis of unspecified deep veins of right lower extremity
[2020-09-30 23:57] LABS: Partial Thromboplastin Ratio 2.7
[2020-10-01] MEDS: HEPARIN SODIUM/DEXTROSE 25,000 UNITS/500 ML BAG IV SCH (04:17)
[2020-10-01 06:58] LABS: Hematocrit (blood only) 46.8 % (42-52); Hemoglobin 15.9 g/dL (14.0-18.0); Mean Corpuscular Hemoglobin 30.2 pg (25-34); Mean Platelet Volume 9.7 fL (7.4-10.4); Platelet Count 192 K/uL (130-400); RDW Coefficient of Variation 13.2 % (11.5-14.5); Red Blood Count 5.26 M/uL (4.7-6.1); White Blood Count 14.82 K/uL (4.8-10.8)
[2020-10-01 07:29] LABS: Creatinine Clr Calc Pharmacy 101.7 ml/min; Est GFR (Non-African American) 94.1
[2020-10-01 07:31] LABS: INR 3.3 (0.9-1.1); Partial Thromboplastin Ratio 2.4; Prothrombin Time 32.9 Seconds (9.0-12.0)
[2020-10-01 07:32] LABS: Partial Thromboplastin Time 67.4 Seconds (21.0-31.0)
[2020-10-01] MEDS: dexAMETHasone 6 MG in SYRINGE 0 ML IV SCH (08:10)
[2020-10-01] MEDS: guaiFENesin 600 MG TABCR PO SCH ×2 (08:10→20:03)
[2020-10-01] MEDS: LANSOPRAZOLE 15 MG SOLTAB PO SCH (08:10)
[2020-10-01] MEDS: ZINC SULFATE 220 MG CAPSULE PO SCH (08:11)
[2020-10-01] MEDS: CHOLECALCIFEROL 1,000 UNITS 25 MCG TAB PO SCH (08:11)
[2020-10-01] MEDS: BENZONATATE 100 MG CAPSULE PO SCH ×3 (08:16→20:04)
[2020-10-01] MEDS ORDERED: SODIUM CHLORIDE 0.65% NA SOLN 45 ML (OCEAN) PRN (13:20)
[2020-10-01 15:03] LABS: Partial Thromboplastin Ratio 1.7
[2020-10-01 15:19] LABS: Partial Thromboplastin Time 47.3 Seconds (21.0-31.0)
[2020-10-01] MEDS: MUPIROCIN 2% OINT 22 GM TUBE EXT SCH ×2 (15:44→20:04)
[2020-10-01] MEDS ORDERED: WARFARIN SOD 5 MG TAB PO SCH (16:00)
--- NOTE | 2020-10-01 21:48 | Hospitalist Progress Note ---
Date of Service October 01, 2020 Assessment & Plan (1) Acute respiratory failure with hypoxia: 2nd to extensive b/l PEs including saddle embolus, COVID-19 pneumonia, +/- active sarcoid. OVERALL IMPROVING. Heparin drip/coumadin, dexamethasone for COVID-19 / sarcoid. Continue HFNC - maintain O2 sats 90-94%. Wean as tolerated. Continue self-proning. Pulmonary toilet. Deferring on IV antibiotics given normal procal, etc. (2) Pulmonary embolism associated with COVID-19: Saddle pulmonary embolism and b/l pulmonary emboli. DVT in right lower extremity. 2nd to COVID 19 infection in setting of chronic sarcoid. Continue heparin IV. s/p 2 doses of 10mg each of coumadin. INR went from 1.4 to 4.1, and now 3.3 Resume 5mg of coumadin today with INR in am. (3) Right leg DVT: Heparin/coumadin. PTT and INR daily. Due to increased clotting risk in setting of COVID-19 infection & sarcoid. (4) Pneumonia due to 2019 novel coronavirus: Extensive, as seen on CTA chest. Dexamethasone - day #6 of 10. Overall patient is slowly improving. Patient is at least 2 weeks into his illness - thus, remdesivir and convalescent plasma deferred. Cont HFNC, pulmonary toilet, self-proning, supportive care. Cont zinc. Cont vitamin D. Wean O2 as tolerated. (5) Sarcoidosis: History of Sarcoidosis - pulmonary involvement as well as skin and kidney. No O2 requirement at baseline. Patient currently not taking any immune- modulating treatments or chronic steroids for his sarcoidosis. Follows with pulmonary in [place] [facility], Dr Villagomez. Uncertain if some of his lung parenchyma findings on CT are due to active sarcoid. Thus, continue IV steroids and then PO steroids at d/c with close pulmonary f/u shortly after. Liver & spleen are enlarged on imaging - likely 2nd sarcoid. (6) Hemoptysis: Likely 2nd to extensive PEs. Resolved. Continue observation. H/H have been stable while here. 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 (9) DVT prophylaxis: heparin drip with coumadin updated by phone 09/28 and 09/30 slowly progressing continue PT/OT for deconditioning Admission and Anticipated Discharge Date Admission Date: September 26, 2020 Subjective patient anxious for d/c home O2 continues to be weaned cough remains dry no hemoptysis slept better last pm continues with GRULLON but no worse than previous eating very well tele normal overnight Review of Systems Constitutional: no fever and no chills Cardiovascular: no chest pain and no dyspnea at rest Gastrointestinal: no abdominal pain, no nausea and no vomiting Physical Exam Constitutional: no acute distress and no altered mental status ENMT: external ear and nose normal, oropharynx normal Respiratory: + cough; no respiratory distress Auscultation: + rales (b/l bases); no wheezes Cardiovascular: Rate/Rhythm: regular rate and regular rhythm Heart Sounds: normal S1 and normal S2; no murmur Vessels: posterior tibial pulses present and dorsalis pedis pulses present; no JVD Extremities: no edema Gastrointestinal (Abdomen): normal bowel sounds, soft, nontender, no hepatosplenomegaly Skin: no rashes, warm and dry Psychiatric: A+Ox3, euthymic affect Results & Data Results & Data ([facility]) Vital Signs (Past 12 Hours) Vital Signs Temp Pulse Resp BP Pulse Ox 10/01/20 20:28 36.6 C 82 20 167/80 H 95 10/01/20 16:08 36.7 C 74 18 163/81 H 96 10/01/20 12:00 36.9 C 83 20 161/84 H 95 Laboratory Results Laboratory Results - last 24 hr 09/30/20 10/01/20 10/01/20 23:21 06:34 06:34 WBC RBC Hgb Hct MCV MCH MCHC RDW Std Deviation RDW Coeff of Obi Plt Count MPV PT Cancelled 32.9 H INR Cancelled 3.3 H APTT 74.0 H* 67.4 H* PTT Ratio 2.7 2.4 Creatinine Est Cr Clr Drug Dosing Est GFR ( Amer) Est GFR (Non-Af Amer) 10/01/20 10/01/20 10/01/20 06:34 06:34 14:21 WBC 14.82 H RBC 5.26 Hgb 15.9 Hct 46.8 MCV 89.0 MCH 30.2 MCHC 34.0 RDW Std Deviation 43.0 RDW Coeff of Obi 13.2 Plt Count 192 MPV 9.7 PT INR APTT 47.3 H* PTT Ratio 1.7 Creatinine 0.93 Est Cr Clr Drug Dosing 101.7 Est GFR ( Amer) 109.0 Est GFR (Non-Af Amer) 94.1 PG Care Time/CCT Total # of Minutes Spent Total Time Spent with Patient: Total time spent is greater than 50% in coordination of care (as documented) at patient's floor/unit and/or counseling patient: Coding Level of Care Code 23892 Subseq Hosp Care Lvl 3 Diagnoses Acute respiratory failure with hypoxia J96.01 Pulmonary embolism associated with COVID-19 U07.1; I26.99 Right leg DVT I82.401 Affected thrombotic vein of extremity: unspecified vein of extremity Chronicity: acute Pneumonia due to 2019 novel coronavirus U07.1; J12.89 Sarcoidosis D86.9 Hemoptysis R04.2 Chronic GERD K21.9 Tobacco dependence due to chewing tobacco F17.220 DVT prophylaxis Z29.9 (1) Right leg DVT Affected thrombotic vein of extremity: unspecified vein of extremity Chronicity: acute Qualified Code(s): I82.401 - Acute embolism and thrombosis of unspecified deep veins of right lower extremity
[2020-10-02] MEDS: HEPARIN SODIUM/DEXTROSE 25,000 UNITS/500 ML BAG IV SCH ×4 (00:09→12:01)
[2020-10-02] MEDS: dexAMETHasone 6 MG in SYRINGE 0 ML IV SCH (08:31)
[2020-10-02] MEDS: MUPIROCIN 2% OINT 22 GM TUBE EXT SCH (08:31)
[2020-10-02] MEDS: LANSOPRAZOLE 15 MG SOLTAB PO SCH (08:32)
[2020-10-02] MEDS: ZINC SULFATE 220 MG CAPSULE PO SCH (08:32)
[2020-10-02] MEDS: CHOLECALCIFEROL 1,000 UNITS 25 MCG TAB PO SCH (08:32)
[2020-10-02] MEDS: BENZONATATE 100 MG CAPSULE PO SCH ×2 (08:32→14:04)
[2020-10-02] MEDS: guaiFENesin 600 MG TABCR PO SCH (08:32)
[2020-10-02 09:01] LABS: INR 2.7 (0.9-1.1); Partial Thromboplastin Ratio 2.2; Prothrombin Time 27.2 Seconds (9.0-12.0)
[2020-10-02 09:05] LABS: Partial Thromboplastin Time 62.6 Seconds (21.0-31.0)
[2020-10-02 09:18] LABS: BUN Creatinine Ratio 17.6 (10-20); Calcium 9.3 mg/dl (8.5-10.1); Creatinine Clr Calc Pharmacy 98.5 ml/min; Est GFR (African American) 104.9; Est GFR (Non-African American) 90.5; Potassium 4.4 mmol/L (3.5-5.1)
--- NOTE | 2020-10-02 10:10 | XRay Report ---
XR chest 1V portable CLINICAL HISTORY: COVID-19 infection, sarcoid, interval change COMPARISON STUDY: 09/26/2020 FINDINGS: The heart remains enlarged. There is mild improvement in the bilateral pulmonary airspace o pacities and interstitial thickening.. There are no large pleural effusions. There is no pneumothorax .[ IMPRESSION: Cardiomegaly and mild improvement in the diffuse bilateral pulmonary airspace opacities a nd interstitial thickening. ACT 112: Negative or not required by law. Electronically signed by: Domingo Lauren M.D. 10/02/2020 10:08 AM
[2020-10-02] MEDS ORDERED: ENOXAPARIN 100 MG/1ML SYR SQ SCH (11:00)
[2020-10-02 11:06] VITALS: TEMP 98.1; O2SAT 93
[2020-10-02] MEDS ORDERED: WARFARIN SOD 2.5 MG TAB PO SCH (16:00)
[2020-10-02] MEDS ORDERED: WARFARIN SOD 3 MG TAB PO SCH (16:00)
--- NOTE | 2020-10-02 16:33 | Discharge Summary ---
Date of Service date of admission - September 26, 2020 date of discharge - October 02, 2020 Admission HPI Per Admitting Provider Mario Cobos is a 50yo C male with history of Sarcoidosis, Covid-19 diagnosed appx 8 days ago presenting with cough, SOB and dyspnea with minimal exertion. Patient denies fever/nausea/vomiting/diarrhea/headache. He has some chest discomfort, cough productive for blood tinged sputum reported today as well as dyspnea. Patient coughs while speaking and while taking deep breaths. Upon arrival to the ER he was found to be hypoxic to 76% on room air. Presently saturating at 91% on 6L NC. ER Course: Dexamethasone 10mg IV Principal Diagnosis 1. acute hypoxic respiratory failure 2. COVID-19 pneumonia 3. b/l pulmonary emboli including saddle PE 4. history of sarcoid Discharge Exam Constitutional no acute distress and no altered mental status ENMT external ear and nose normal, oropharynx normal Respiratory no respiratory distress Auscultation: + rales (b/l bases ); no wheezes Cardiovascular Rate/Rhythm: regular rate and regular rhythm Heart Sounds: normal S1 and normal S2; no murmur Vessels: posterior tibial pulses present and dorsalis pedis pulses present; no JVD Extremities: no edema Gastrointestinal (Abdomen) normal bowel sounds, soft, nontender, no hepatosplenomegaly Skin no rashes, warm and dry Psychiatric A+Ox3, euthymic affect Discharge Data Allergies Allergy/AdvReac Type Severity Reaction Status Date / Time No Known Allergies Allergy Verified 09/26/20 04:09 Consultations Rotary Soil Stabilizer Operator PT, OT Ordered Studies 09/26/20 07:30 CT angio chest PE protocol Urgent IMPRESSION: 1. Cardiomegaly with a considerable amount of bilateral pulmonary emboli as above including a saddle embolus. Mild straightening of the intraventricular septum may reflect associated right heart strain. 2. Pulmonary edema with small left greater than right pleural effusions. 3. Superimposed extensive bilateral mixed groundglass and alveolar opacities are suggestive of multifocal pneumonia. 4. Prior granulomatous disease. 5. Hepatosplenomegaly with hepatic steatosis. 09/26/20 10:28 US venous doppler LE Routine IMPRESSION: 1. There is occlusive deep venous thrombosis in the right calf as above. 2. There is no sonographic evidence of deep venous thrombosis in the left lower extremity. Echocardiogram - * EF 55-60% * normal RV function; no evidence of RV strain * normal pulmonary pressures * normal valve function * mild LVH Hospital Course (1) Acute respiratory failure with hypoxia: Secondary to extensive b/l PEs including saddle embolus, COVID-19 pn eumonia, +/- active sarcoid. At time of admission he was admitted to the ICU and initiated on heparin infusion. He did not require lytic therapy, pressors, etc. He received IV dexamethasone for his COVID-19 pneumonia. In the event his sarcoid is active the steroids would help treat this as well. He initially required high-flow nasal cannula, and this was weaned over his hospital stay. By the time of discharge his O2 sats were normal in room air. 2-step ambulatory oxygen test demonstrated NO need for home oxygen with activity. HOWEVER, patient was very nervous to return home without any oxygen and therefore he purchased oxygen [id number]. The patient follows with pulmonary ([facility], Dr Villagomez) in [place] and he was advised to follow-up with Dr Villagomez within 7 days if possible given the complexity of his pulmonary disease. (2) Pulmonary embolism associated with COVID-19: Saddle pulmonary embolism and b/l pulmonary emboli as seen on CTA chest. DVT in right lower extremity also discovered. 2nd to COVID-19 infection in setting of chronic sarcoid. Admitted to the ICU and initiated on IV heparin. Ultimately started on coumadin with first dose on 09/28/2020. INR on day of discharge was 2.7. Patient was given lab orders to have daily INRs starting 10/03/2020 at the [facility] in [place]. Regimen at discharge: Lovenox 90mg BID until stability of INR is achieved (INR goal 2-3). Coumadin 2.5mg daily. Case management called the patient's PCP and confirmed that they would follow his INR and manage his coumadin. Of note - patient was comfortable with the lovenox injections and the cost was not prohibitive either. (3) Right leg DVT: Due to increased clotting risk in setting of COVID-19 infection & sarcoid. Coumadin/lovenox as above. (4) Pneumonia due to 2019 novel coronavirus: Extensive, as seen on CTA chest. Patient received 7 days of IV/PO decadron while here. He will need 3 more days of decadron 6mg daily following discharge. Patient was at least 2 weeks into his illness at time of admission. Thus, remdesivir and convalescent plasma were both deferred while hospitalized. See "acute hypoxic respiratory failure" above regarding his overall hospital course. (5) Sarcoidosis: History of Sarcoidosis - pulmonary involvement as well as skin and kidney. No O2 requirement at baseline. Patient currently not taking any immune- modulating treatments or chronic steroids for his sarcoidosis. Follows with pulmonary in [place] - [facility], Dr Villagomez. [facility] saw the patient in consult for his COVID-19 pneumonia, PEs, and sarcoid. It was uncertain if some of his lung parenchyma findings on CT were due to active sarcoid or from the COVID alone (or both). His CTA chest was placed on CD-ROM to bring to his pulmonary f/u appointment. He will complete 3 more days of steroids post-discharge for his COVID-19 pneumonia. He was strongly advised to have follow-up with Dr Villagomez at [facility] in [facility], preferably within a week. (6) Hemoptysis: Transient, small volume, early on in his hospital stay -- likely 2nd to extensive PEs. Resolved fully prior to discharge. Hemoglobin was stable while here. (7) Chronic GERD: Cont PPI prn post-discharge. (8) Tobacco dependence due to chewing tobacco: Counseled to quit chewing tobacco. (9) Hepatomegaly: As seen on CT. 2nd to sarcoid? AST was scantly elevated at admission, then resolved by the next day, likely 2nd to COVID-19. ALT was normal his entire stay. GI follow-up recommended for the hepatomegaly. Total Time Total Time Spent Total Time Spent (In Minutes): 50 Total Time Includes: Examination of the Patient, Discharge Planning, Medication Reconciliation and Communication With Other Providers (telephone call placed to PCP's office and I spoke directly w/ Alba wadsworth/ plan of care) Discharge Plan Discharge Items Patient Disposition: Home - Self-Care Reason For Visit: severe shortness of breath Discharge Diagnosis: 1. COVID-19 pneumonia 2. Bilateral Pulmonary Emboli (blood clots in lungs) 3. Right Leg DVT (blood clots in right leg) 4. Sarcoid 5. Enlarged spleen and liver on CT scan - likely due to sarcoid Activity: As commented below Activity Comment: gradually increase activity over the next 1-2 weeks Exercise/Sports: Wait until after follow-up appointment Driving/Machine Use: wait for at least 1 week if possible Non-emergency contact: Primary Care Provider and Ediphone Operator Call non-emergency contact if: you have any medication questions, your symptoms worsen and you have a fever Follow-up/Referrals: Familia Villagomez MD [Other] (see Dr Villagomez within 1 week if possible ) Alba Gary PA-C [Primary Care Provider] - (Please schedule a coumadin level (INR) with Ms Gary's office on 10/03/2019. In addition, please schedule a virtual / telehealth visit with Ms Gary within 5 days. ) Diet: Regular Ambulatory Orders: Prothrombin Time INR (DAILY) Timeframe: 20201004 Location: Determined by Patient Ordered By: Miki R Siuta Prothrombin Time INR (DAILY) Timeframe: 20201005 Location: Determined by Patient Ordered By: Miki R Siuta Prothrombin Time INR (DAILY) Timeframe: 20201006 Location: Determined by Patient Ordered By: Miki R Siuta Prothrombin Time INR (DAILY) Timeframe: 20201007 Location: Determined by Patient Ordered By: Miki R Siuta Prothrombin Time INR (DAILY) Timeframe: 20201008 Location: Determined by Patient Ordered By: Miki R Siuta Prothrombin Time INR (DAILY) Timeframe: 20201009 Location: Determined by Patient Ordered By: Miki R Siuta Prothrombin Time INR (DAILY) Timeframe: 20201010 Location: Determined by Patient Ordered By: Miki R Siuta Prothrombin Time INR (Timed) Timeframe: 1 Day Location: Determined by Patient Ordered By: Miki Cris Siuta Addtl Attending Provider Instructions: You were treated for COVID-19 infection/pneumonia and extensive blood clots of your lungs. The blood clots started in your right leg and moved to your lungs. You likely developed the blood clots because of the COVID-19 infection. If your sarcoid is active having this condition could also increase your risk of blood clots. You received IV steroids for the COVID-19 infection, IV heparin and coumadin for your blood clots, and supportive care during your hospital stay. You needed oxygen for most of your stay. On day of discharge a "2-step" oxygen test showed that your oxygen levels were lowest at about 90% with walking. This was good news in that this indicates your lungs and blood clots are improving. Technically you did not qualify for home oxygen but you are planning to purchase oxygen on your own. If you purchase the oxygen on your own I would use 2 liters with sleep/naps, and 2 liters as needed at other times at your discretion. Please take the CD that contains your CT scan of the lungs to Dr [facility] for his review. Recommendations: 1. Right leg DVT and Pulmonary emboli - * your coumadin level - also known as the "INR" - is 2.7 on day of discharge * your INR goal range is between 2 and 3 * you will need coumadin for a minimum of 6 months but potentially you may need it longer; in some cases some people take it for life; Dr Villagomez can help determine the length of your treatment 2. Medications for blood clots - * coumadin (warfarin) 2.5mg daily; start on 10/03/2020 * lovenox (enoxaparin) injections - 90mg twice daily; space about 12 hours apart * first dose of lovenox is TONIGHT at about 11pm * your lovenox dose is 90mg; the syringe contains 100mg; you will have to "waist" (discard/not use) about 10mg for each shot * Cookie can tell you when it is safe to stop the lovenox * know that your coumadin dose will more than likely change with time 3. Obtain your first INR check on morning, 10/03/20, at Ms Gary's office; bring the lab slip with you that I have printed for you 4. COVID-19 pneumonia - * dexamethasone steroid - take 6mg once daily for 5 more days starting 10/03/20 * tessalon pearles 100-200mg every 8 hours as needed for cough * albuterol via spacer device - 2 puffs via spacer every 4 hours as needed for cough * may use [id number] mucinex up to 1200mg twice daily as needed for cough * your chest x-ray on 10/02/20 showed resolving pneumonia; this is good news 5. Sarcoid - your CAT scan showed that your liver and spleen are enlarged; this may indicate that your sarcoidosis is active. Please follow-up with Dr Villagomez within 1 week. This is extremely important. Some of the disease in the lungs may be active sarcoidosis as well. 6. Please quit chewing tobacco/dip if possible. Follow-up - see separate section Discontinuation of isolation - you have had COVID for about 20 days or possibly 1-2 days longer. You are likely not contagious to others at this time. With that said please wear your mask religiously ANY TIME you leave your home. Additionally, with the exception of your doctor appointments in the next 1-2 weeks, I would strongly recommend that you stay at home as much as possible over the next several months during the winter. You will not tolerate the cold outside well with your recent severe COVID illness. Also, unnecessary trips outside the home will put you at risk of other viruses (influenza, etc). Return to [facility] if - * you have fevers over 100 degrees * you have worsening shortness of breath despite cough medications, steroids, etc. * you have chest pain * you have bleeding from your rectum, bladder, or other locations * any other concerns Addtl Audioprosthologist Provider Instructions: Coumadin Medication Instructions * Warfarin is a medicine prescribed to prevent blood clots * Warfarin will thin your blood and help prevent new clots * Take your medications exactly as directed * Never skip a dose. Never take a double dose. If you miss a dose, take it as soon as you remember * It is important for your doctor to monitor your prothrombin time (PT) / "INR". This is a lab test * Keep your appointment for lab tests Risk of Adverse Drug Reactions and Interactions: * Warfarin increases your risk of bleeding * The food you eat and other medications you take can affect how Warfarin works in your body * Ask your doctor about daily aspirin therapy * It is very important to talk with your doctor about all of the other medicines, antibiotics, vitamins or herbal products that you are taking * All of your medication must be approved by your doctor, including new medicines, as well as medicines you have taken before you started taking Warfarin Diet: * In order for Warfarin to work properly, it is important to keep your intake of Vitamin K as consistent as possible * You should avoid any sudden change in Vitamin K intake * Report any significant changes in your diet or weight to your doctor Call your Primary Care doctor if you experience any of the following: * Swelling or Pain in your leg * Sudden, continuous pain deep in a muscle * Pain that worsens when you are active or when you stand still for a long time * Chest Pain * Sudden Shortness of Breath * Rapid or pounding heart beat * Fainting * Dizziness * Cough with blood or bloody sputum * Sweating more than normal * Bruises * Heavy or uncontrolled bleeding * Blood in your urine, stool or vomit * Black or tarry stools Caring for Your Self at Home: * Avoid sitting, standing or lying down for long periods without moving your legs and feet * When traveling by car, stop to get out and move around at least once every 3 hours * On long airplane, train or bus rides, get up and move around when possible * If you can't get up, wiggle your toes and tighten your calves to keep your blood moving Follow Up: It is important for you to keep your follow up appointments with your medical provider. Pending Studies at Discharge: No Stand-Alone Forms: My [facility] [employer], Smoking Cessation Medications and DC Order Prescriptions: New warfarin [Jantoven] 2.5 mg Tablet 2.5 mg PO DAILY@1600 Qty: 30 RF: 2 benzonatate [Tessalon Perles] 100 mg Capsule 100 - 200 mg PO TID PRN (Reason: cough) Qty: 30 RF: 0 mupirocin 2 % Ointment 1 applic EXT BID Qty: 1 RF: 0 albuterol sulfate [Ventolin HFA] 90 mcg/actuation Hfa Aerosol Inhaler 2 puff inhalation Q4H PRN (Reason: shortness of breath or wheezing or cough) Qty: 1 RF: 0 enoxaparin 100 mg/mL Syringe 90 mg subcut Q12H 7 Days Qty: 14 RF: 1 (DME) Oxygen Home Liters Per Minute 1 ea .Route .prn Qty: 1 RF: 0 (DME) Aerochamber Plus Flow-Vu Spacer See Rx Instructions .ROUTE .MEDSUPPLY Qty: 1 RF: 0 Continued ergocalciferol (vitamin D2) [Vitamin D2] 1,250 mcg (50,000 unit) capsule 50,000 unit PO WK RF: 0 cholecalciferol (vitamin D3) [Vitamin D3] 50 mcg (2,000 unit) Tablet 50 mcg PO DAILY RF: 0 Discharge Orders: Discharge Order (Routine); Ordered 10/02/20 Ordered By: Miki Babcock/Other Patient Handouts: 2019-nCoV, COVID-19 Prevention, COVID-19 Home Care, Caring for Your Inhaler, Embolism Pulmonary Dc, Caring for Someone Who Has COVID-19, Disinfecting Your Home of COVID-19 Admission Data Admit Date/Time: 09/26/20 05:05 Attending Provider: Miki Jewell Admit Provider: Angelica Sams Primary Care Provider: Alba Gary Other Providers: Angelica Sams ; Richmond Rodas Other Interventions: Discharge Summary Assessment (RN) Last Done: 10/02/20 16:54 Coding Level of Care Code D/C Day Management >30 mins Diagnoses Acute respiratory failure with hypoxia J96.01 Pulmonary embolism associated with COVID-19 U07.1; I26.99 Right leg DVT I82.401 Affected thrombotic vein of extremity: unspecified vein of extremity Chronicity: acute Pneumonia due to 2019 novel coronavirus U07.1; J12.89 Sarcoidosis D86.9 Hemoptysis R04.2 Chronic GERD K21.9 Tobacco dependence due to chewing tobacco F17.220 Hepatomegaly R16.0
[2020-10-02 16:55] VITALS: BP 138/82; PULSE 79
[2020-10-02] MEDS ORDERED: COUGH DROP (SUGAR FREE) LOZ 24 LOZ/1 BOX BUCCAL ONE (17:52)
== END 2020-10-02 18:40 | disposition home or self-care (01) | DRG 177 ==
LOC: ED 02:58 → SUATTDRO 05:05 → 2N 05:05 → 1E 09:19 → 2S 09-28 17:14
DX: I82.401 Acute embolism and thrombosis of unspecified deep veins of right lower extremity; K21.9 Gastro-esophageal reflux disease without esophagitis; R04.2 Hemoptysis; U07.1 COVID-19; D86.9 Sarcoidosis, unspecified; I26.92 Saddle embolus of pulmonary artery without acute cor pulmonale; Z87.891 Personal history of nicotine dependence; G47.33 Obstructive sleep apnea (adult) (pediatric); J96.01 Acute respiratory failure with hypoxia; J12.89 Other viral pneumonia